=== PATIENT | female | born 1940 | race Caucasian/White ===

== ENCOUNTER 2016-04-30 16:01 | Outpatient (CLI) | payer MEDICARE, OTHER ==
[2016-01-29 08:45] VITALS: BP 165/84
== END 2016-04-30 16:02 ==
LOC: LABRHC 16:01
PROVIDERS: ATTEND Family Medicine
DX: R30.0 Dysuria (principal)
CPT/HCPCS: 87088

== ENCOUNTER 2016-05-12 17:06 | Outpatient (CLI) | payer MEDICARE, OTHER ==
[2016-01-29 08:45] VITALS: BP 165/84
[2016-05-12 17:29] LABS: BASOPHILS % 0.3 (0.0-1.5); EOSINOPHILS % 1.9 % (0.0-6.8); LYMPHOCYTES # 1.1 # k/uL (0.6-4.0); MEAN CORPUSCULAR HEMOGLOBIN 29.9 pg (28.0-34.0); MONOCYTES # 0.4 # k/uL (0.0-0.9); MONOCYTES % 8.7 % (0.0-11.0); NEUTROPHILS # 3.1 # k/uL (1.4-7.7)
[2016-05-12 17:58] LABS: eGFR (African) > 60; eGFR (Non-African) > 60
== END 2016-05-12 17:11 | disposition home or self-care (01) ==
LOC: LAB 17:06
PROVIDERS: ATTEND Family Medicine
DX: D64.9 Anemia, unspecified (principal); Z51.81 Encounter for therapeutic drug level monitoring
CPT/HCPCS: 36415; 80053; 82150; 85025

== ENCOUNTER 2016-05-14 08:50 | Outpatient (CLI) | payer MEDICARE, OTHER ==
[2016-01-29 08:45] VITALS: BP 165/84
--- NOTE | 2016-05-14 15:02 | Diagnostic Imaging Report ---
[facility] [address] [facility].[address] [address] Report Submission Date: May 14, 2016 12:33:03 PM HOD CARRIER Patient Study Name: ANEL TORREZ Date: May 14, 2016 11:43:13 AM HOD CARRIER Modality Type: CT\SR Gender: F Description: CT ABD & PELVIS W/ CON : 42 Institution: [facility] Physician: LIZ MOREAU CT of the abdomen and pelvis without contrast CLINICAL HISTORY: Nausea, vomiting and weight loss for 6 months. Abdominal pain. TECHNIQUE: CT abdomen and pelvis is performed following oral administration of contrast without the use of intravenous contrast. Sagittal and coronal reconstructions are performed by the technologist. FINDINGS: Visualized lung bases are clear. There are calcified pleural plaques in the right lung base. Liver and spleen demonstrate normal attenuation without focal defect. Small gallstones are seen within the gallbladder. There is no pancreatic or adrenal abnormality. The kidneys are of normal size, shape and position. Extensive vascular calcification is present in the abdominal aorta and its branches without evidence of aneurysm. There is no retroperitoneal mass or significant adenopathy. Postoperative changes are seen with lumbar fusion at L4-5. There is slight anterolisthesis of L4 on L5. Left total hip replacement with metal artifact obscures portions of the pelvis. Bladder is unremarkable. There is no free fluid in the pelvis or abdomen. Appendix is visualized and is within normal limits. IMPRESSION: Cholelithiasis. Vascular calcification. Postoperative changes. Calcified right pleural plaques. Electronically signed on May 14, 2016 12:33:03 PM HOD CARRIER by: Shantanu QUINN
== END 2016-05-14 08:52 ==
LOC: RAD 08:50
PROVIDERS: ATTEND Family Medicine
DX: K80.20 Calculus of gallbladder without cholecystitis without obstruction (principal)
CPT/HCPCS: 74176; A9698

== ENCOUNTER 2016-05-16 14:20 | Outpatient (CLI) | payer MEDICARE, OTHER ==
[2016-01-29 08:45] VITALS: BP 165/84
--- NOTE | 2016-05-16 15:41 | CONSULTATION REPORT ---
REFERRING PHYSICIAN: Dr. Hubert Pradhan CONSULTING PHYSICIAN: Jordan Lloyd MD Dear Dr. Pradhan: REASON FOR CONSULT: Thank you for referring Francisca Thayer for continued management of her rheumatoid arthritis. HISTORY OF PRESENT ILLNESS: This is a 75-year-old white woman who has had rheumatoid arthritis as long as she can remember. She has had it so long that she used to be treated with gold. More recently, she has been on methotrexate at upwards to 8 tablets weekly. She tells me she has done with that. She has no problems with her hands, wrists, or feet. No morning stiffness. No joint swelling. She is more plagued by the fact that she recently had a fall and fractured her left hip and that is healing. She also bruised up her left anterior chest and left elbow and that is healing. She is having some pain in her knee and it is worse with walking. There is some creaking with it and she is scheduled for a knee injection. The other source of her pain is her back. She has had extensive surgery and fusion for what appeared to be spinal stenosis and this was done by Dr. Elias. Further complicating things is abnormal liver functions. I was able to review her labs and the first abnormality was in September of 2015, AST of 43 and alkaline phosphatase of 131. In November, an AST of 61, ALT of 53, and alkaline phosphatase of 132. On January 08, AST was 55, ALT of 74, and alkaline phosphatase of 115. Normal LFTs on January 17, but again on May 12, 2016 , AST remains elevated at 66 and an alkaline phosphatase of 199. A report of a CT of the abdomen does show that the patient has cholelithiasis. PAST MEDICAL HISTORY: 1. Bout of C. difficile colitis. 2. Hip fracture. 3. Coronary artery disease. 4. Chronic low back pain. 5. Seropositive rheumatoid arthritis. 6. Chronic immunosuppression. 7. Lumbar spine surgery. 8. Coronary artery bypass surgery in 1986 and 1998. 9. Hypertension. 10. COPD. 11. Gastritis. 12. Depression. 13. Hypothyroidism. 14. Osteoarthritis. PRESENT MEDICATIONS: Present medications are reviewed and are in the chart and again, include methotrexate 8 tablets weekly with folic acid supplementation. ALLERGIES: Patient reports allergies to: 1. Sulfa drugs. 2. Atenolol. 3. Cyclobenzaprine. 4. Flu vaccine. 5. Lisinopril. 6. Pregabalin. REVIEW OF SYSTEMS: Positive for fatigue and weakness and dry eyes and a little bit of dry mouth and runny nose and mouth sores, swelling of the legs, chronic shortness of breath, nausea, constipation, nocturia, easy bruising, skin tightness, muscle spasms, night sweats, excessive worries, depression, and difficulty sleeping. Otherwise, her weight has been stable. No red painful eyes. No dark stools or bloody stools. No heartburn. No rashes, hives, photosensitivity, color change of the hands or feet in the cold, nodules or bumps. PHYSICAL EXAMINATION: General: On exam, the patient appears overall well. He has difficulty with walking. Vital Signs: Weight is 171. T: 97, R: 20, heart rate is 77, BP: 150/70. HEENT: Sclerae are anicteric. Conjunctivae are pink. No stomatitis or glossitis. LUNGS: Some crackles at the bases, otherwise, no wheezing. HEART: Regular rhythm. No rubs or murmurs. ABDOMEN: Soft. VASCULAR: No edema or cyanosis. She does have senile purpura of the upper extremities. PERIPHERAL JOINTS: DIPs, PIPs, MCPs, and wrists show no tenderness or synovitis. 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 Elbows, shoulders, AC/SC and TMJ joints are unremarkable. Left knee with no effusion. Right knee with no effusion. Left knee did have medial joint line tenderness. No crepitus. Ankles are slightly tender. IMPRESSION: 1. History of seropositive rheumatoid arthritis, appears in clinical remission. 2. Abnormal liver functions with cholelithiasis. I am stopping her methotrexate indefinitely. We will give her a drug holiday. She is to call me immediately if she has recurrence of any swelling, warmth, or morning stiffness. 3. Osteoarthritis of the knee. She will be seeing Dr. James for a knee injection. 4. Chronic intractable back pain, i.e. failed back as per Dr. James. PLAN: Today I will obtain a DEXA scan of her right hip and forearm. I will give her a call in about 4 weeks and decide whether she is a candidate for management of her osteoporosis. Thank you very much for the opportunity to take care of your patient. Best regards, cc: Dr. Hubert QUINN
== END 2016-05-16 14:22 ==
LOC: RHEU 14:20
PROVIDERS: ATTEND Internal Medicine
DX: M81.0 Age-related osteoporosis without current pathological fracture (principal)
CPT/HCPCS: 77080; 99203; 99204

== ENCOUNTER 2016-05-25 08:20 | Outpatient (CLI) | payer MEDICARE, OTHER ==
[2016-01-29 08:45] VITALS: BP 165/84
--- NOTE | 2016-05-25 10:51 | Diagnostic Imaging Report ---
[facility] [place] [facility] [address] [facility] [address] [place], [place]. [address] ~ ~ ~ ~ Report Submission Date: May 25, 2016 9:58:35 AM DEVELOPER SUPPORT ENGINEER Patient ~ Study Name: ANEL TORREZ ~ Date: May 25, 2016 8:48:59 AM DEVELOPER SUPPORT ENGINEER ~ Modality Type: MR Gender: F ~ Description: MRI LOW EXT JNT W/O CONTRAST : 42 ~ Institution: [facility] [place] [facility] Physician: DENISSE DOMINGUEZ ~ ~ ~ ~ HISTORY: 75-year-old female with left knee pain laterally for 6 months. COMPARISON: None available. TECHNIQUE: ~Multiplanar multisequence noncontrast MR images of the left knee were performed. ~ FINDINGS: ~The PCL, MCL, LCL, and popliteus tendon are intact. ~There is mild signal abnormality throughout the ACL. ~There is fluid signal within the quadriceps and patellar tendons at the patellar attachments. There are subtle tears of the inner margin of the anterior horn and body of the lateral meniscus. ~The medial meniscus is intact. ~There is 5 mm lateral patellar subluxation. ~There is full-thickness loss of articular cartilage of the patella , medially and laterally. ~There are mild subchondral cystic changes of the patella. ~There is moderate to advanced chondromalacia of the medial compartment. ~There is mild chondromalacia of the lateral compartment. ~No evidence of fracture or bone marrow edema throughout the left knee. ~There is a small joint effusion and small popliteal fossa cyst. IMPRESSION: 1. ~Low grade chronic partial tear of the ACL. ~The PCL and collateral ligaments are intact. 2. ~Tears of the inner margin of the body and anterior horn of the lateral meniscus. ~The medial meniscus is intact. ~ 3. ~Quadriceps and patellar tendonitis. 4. 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 5. ~Small joint effusion and popliteal fossa cyst. ~ Electronically signed on May 25, 2016 9:58:35 AM DEVELOPER SUPPORT ENGINEER by: Kimo QUINN
== END 2016-05-25 08:22 ==
LOC: RAD 08:20
PROVIDERS: ATTEND Anesthesiology Pain Medicine
DX: S83.512A Sprain of anterior cruciate ligament of left knee, initial encounter (principal); S83.282A Other tear of lateral meniscus, current injury, left knee, initial encounter; M76.52 Patellar tendinitis, left knee; M94.28 Chondromalacia, other site; M25.462 Effusion, left knee; M71.22 Synovial cyst of popliteal space [Baker], left knee
CPT/HCPCS: 73721

== ENCOUNTER 2016-06-03 17:22 | Emergency (ER) | payer MEDICARE, OTHER ==
--- NOTE | 2016-06-03 18:19 | ED Physician Documentation ---
General Adult - HISTORIAN Historian: patient - HPI Stated Complaint: shortness of breath with exertion Chief Complaint: Dyspnea Onset: other (intermittent for several months) Timing: better Modifying Factors: worse with ambulation Quality: Feels SOB Further Comments: yes (Patient had has problems with her gall baldder/ abd pain. Is looking into to see if they think it is the problems. Patient has been having some problems with SOB with exerction. SAO2 is always OK without oxygen. Does have some oxygen at home that she uses at times. When she lasy down to symptoms go away. Does not seem to have any blockage or narrowing that seems to be causing problems. No chest pain or pressure noted. Mild cough, none productive, no wheezing) - ROS CONST: no problems, weakness (genrealized). denies: fever, chills - PAST HX Past History: COPD, hypertension, other (anxiety) Other History: other (CAD, RA, ) Surgeries/Procedures: cardiac bypass, other (AAA, lumbar fusion, Carotid endarterectomy) Immunizations: UTD - SOCIAL HX Smoking History: non-smoker Alcohol Use: none Drug Use: none - FAMILY HX Family History: Yes (CAD) - VITAL SIGNS Vital Signs: Vital Signs Temp Pulse Resp BP Pulse Ox 97.9 F 99 H 28 H 120/84 100 06/03/16 17:33 06/03/16 17:33 06/03/16 17:33 06/03/16 17:33 06/03/16 17:33 - REVIEWED ASSESSMENTS Nursing Assessment Reviewed: Yes Vitals Reviewed: Yes <Hubert Pradhan - Last Filed: 06/03/16 19:05> - VITAL SIGNS Vital Signs: Vital Signs Temp Pulse Resp BP Pulse Ox 97.9 F 99 H 28 H 120/84 100 06/03/16 17:33 06/03/16 17:33 06/03/16 17:33 06/03/16 17:33 06/03/16 17:33 <SONU SMALLWOOD - Last Filed: 06/03/16 21:23> - PAST HX Allergies/Adverse Reactions: Allergies Allergy/AdvReac Type Severity Reaction Status Date / Time atenolol Allergy Verified 06/03/16 17:44 cyclobenzaprine Allergy Verified 06/03/16 17:44 [Cyclobenzaprine] influenza virus vaccine, Allergy Verified 06/03/16 17:44 specific [influenza virus vacc,specific] lisinopril Allergy Verified 06/03/16 17:44 pregabalin [From Lyrica] Allergy Verified 06/03/16 17:44 Sulfa (Sulfonamide Allergy Verified 06/03/16 17:44 Antibiotics) Home Medications: Ambulatory Orders Medication Instructions Recorded Alprazolam [Xanax] 0.5 mg PO D PRN 01/15/16 Aspirin EC [Ecotrin] 81 mg PO DAILY 01/15/16 Atorvastatin Calcium 20 mg PO D 01/15/16 Bisoprolol Fumarate [Zebeta] 5 mg PO D 01/15/16 Budesonide 1 mg IH BID 01/15/16 Donepezil HCl 10 mg PO D 01/15/16 Fexofenadine HCl [Jenna] 30 mg PO D 01/15/16 Fluticasone Propionate [Flonase] 1 spray NS D 01/15/16 Folic Acid [Folvite] 1 mg PO DAILY 01/15/16 Furosemide 20 mg PO D 01/15/16 Ipratropium/Albuterol Sulfate 3 ml NEB Q6 PRN 01/15/16 [Duoneb] Levothyroxine Sodium [Synthroid] 50 mcg PO 07 01/15/16 Methotrexate Sodium [Rheumatrex] 20 mg PO WEEK 01/15/16 Omeprazole 20 mg PO BID 01/15/16 Polyethylene Glycol 3350 [Miralax] 17 gm PO 1100 PRN 01/15/16 Potassium Chloride [Klor-Con M20] 20 meq PO DAILY 01/15/16 Venlafaxine HCl [Effexor Xr] 150 mg PO D 01/15/16 amLODIPine BESYLATE [Norvasc] 5 mg PO 0900 01/15/16 Acetaminophen [Tylenol] 650 mg PO Q6 PRN #100 01/29/16 Cholecalciferol [Vitamin D-3] 2,000 unit PO DAILY #30 tablet 01/29/16 Hydrocodone/Acetaminophen 1 each PO Q4 PRN #60 tablet 01/29/16 [Hydrocodon-Acetaminophen 5-325] Metoclopramide HCl 5 mg PO 17 PRN #30 01/29/16 Progress - Progress Progress: 18:48 EKG are OK, no acute ischemic changes noted post exercise. - EKG/XRAY/CT Comments: EKG post exercise PVCs, no ischemic changes <Pradhan,Hubert - Last Filed: 06/03/16 19:05> ED Results Lab/Radiology - Lab Results Lab Results: Lab Results 06/03/16 06/03/16 06/03/16 18:50 18:50 18:50 WBC 8.20 K/ul K/ul (4.00-12.00) RBC 4.28 M/ul M/ul (3.90-5.20) Hgb 13.1 g/dL g/dL (12.0-16.0) Hct 40.7 % % (34.5-46.5) MCV 95.2 fl fl (80.0-100.0) MCH 30.6 pg pg (28.0-34.0) MCHC 32.1 g/dL g/dL (30.0-36.0) RDW 16.3 % H % (11.3-14.3) Plt Count 264 K/mm3 K/mm3 (130-400) Neut % (Auto) 71.7 % % (39.0-79.0) Lymph % (Auto) 17.2 % % (16.0-50.0) Winkler % (Auto) 9.3 % % (0.0-11.0) Eos % (Auto) 0.9 % % (0.0-6.8) Baso % (Auto) 0.1 (0.0-1.5) Neut # 5.8 # k/uL # k/uL (1.4-7.7) Lymph # 1.4 # k/uL # k/uL (0.6-4.0) Winkler # 0.8 # k/uL # k/uL (0.0-0.9) Eos # 0.1 # k/uL # k/uL (0.0-0.6) Baso # 0.0 # k/uL # k/uL (0.0-0.5) Reactive Lymphs % 0.8 % % (0.0-5.0) Reactive Lymphs # 0.1 # k/uL # k/uL (0.0-0.8) D-Dimer 943 ng/mL H ng/mL (6.0-682) Sodium 140 mmol/L mmol/L (136-145) Potassium 3.3 mmol/L L mmol/L (3.5-5.0) Chloride 104 mmol/L mmol/L (98-110) Carbon Dioxide 26 mmol/L mmol/L (20-32) BUN 17 mg/dL mg/dL (10-26) Creatinine 0.6 mg/dL mg/dL (0.4-1.5) Estimated Creat Clear 124 Est GFR ( Amer) > 60 (60 - ) Est GFR (Non-Af Amer) > 60 (60 - ) Glucose 123 mg/dL H mg/dL (70-99) Calcium 8.8 mg/dL mg/dL (8.5-10.5) Total Bilirubin 0.5 mg/dL mg/dL (0.2-1.2) AST 118 U/L H U/L (0-41) ALT 94 U/L H U/L (0-45) Alkaline Phosphatase 167 U/L H U/L (46-116) Troponin I < 0.03 ng/mL L ng/mL (0.03-0.06) Total Protein 7.1 g/dL g/dL (6.0-8.5) Albumin 3.6 g/dL g/dL (3.0-5.5) - Radiology Radiology Impressions: CT chest with contrast CLINICAL HISTORY: SOB W/ ELEVATED DDIMER, PT HAS HAD BYPASS SX, AND CAROTID SX ( Hx) / SOB W/ ELEVATED D-DIMER (DICOM Hx) TECHNIQUE: 3 mm contiguous axial images of the chest with contrast. Sagittal and coronal reconstructions. FINDINGS: The lungs are clear. There is no evidence of pulmonary infiltrate, pleural effusion or pneumothorax. The cardiac and mediastinal vascular structures enhance appropriately. The aorta and pulmonary arteries are normal in caliber. There is no evidence of pulmonary artery filling defect to suggest pulmonary embolism. There is old granulomatous disease. There is mild centrilobular emphysema. Prior new sternotomy noted. Prior kyphoplasty noted. IMPRESSION: No evidence of acute pulmonary embolism. Electronically signed on Jun 03, 2016 8:25:41 PM PIERCING SPECIALIST by: Paul Pierre - Orders Orders: ED Orders Category Date Time Status Place Saline Lock/IV Now Care 06/03/16 18:[address] CHEST W/ CONTRAST Stat Exams 06/03/16 Taken CBC/PLATELET/DIFF Routine Lab 06/03/16 18:50 Completed CMP Routine Lab 06/03/16 18:50 Completed D DIMER Routine Lab 06/03/16 18:50 Completed TROPONIN I (cTnI) Routine Lab 06/03/16 18:50 Completed EKG WITH COMPARISON Routine Ther 06/03/16 Ordered <SONU SMALLWOOD - Last Filed: 06/03/16 21:23> General Adult Physical Exam - PHYSICAL EXAM GENERAL APPEARANCE: mild distress (anxious) NECK: normal inspection, thyroid normal, supple. No: lymphadenopathy, stiff neck RESPIRATORY: no resp distress, chest non-tender. No: wheezes, rales, rhonchi CVS: reg rate & rhythm, heart sounds normal, equal pulses, no murmur, no gallop ABDOMEN: soft, no organomegaly, normal bowel sounds, no abdominal bruit, no distension, non-tender. No: rebound, guarding BACK: no CVA tenderness SKIN: warm/dry NEURO: oriented X3, cognition normal, depressed mood/affect. No: mood/affect nml <Hubert Pradhan - Last Filed: 06/03/16 19:05> Discharge <Hubert Pradhan - Last Filed: 06/03/16 19:05> Decision to Admit: NO Decision Time: 21:23 <SONU SMALLWOOD - Last Filed: 06/03/16 21:23> Clincal Impression: Dyspnea Qualifiers: Dyspnea type: dyspnea on exertion Qualified Code(s): R06.09 - Other forms of dyspnea Referrals: Hubert Pradhan MD [Primary Care Provider] - 2 Days Additional Instructions: Follow up with PCP in a week You may benefit from pulmonary testing as an outpatient if your symptoms continue Home Medications: Ambulatory Orders Alprazolam [Xanax] 0.5 mg PO D PRN 01/15/16 Aspirin EC [Ecotrin] 81 mg PO DAILY 01/15/16 Atorvastatin Calcium 20 mg PO D 01/15/16 Bisoprolol Fumarate [Zebeta] 5 mg PO D 01/15/16 Budesonide 1 mg IH BID 01/15/16 Donepezil HCl 10 mg PO D 01/15/16 Fexofenadine HCl [Jenna] 30 mg PO D 01/15/16 Fluticasone Propionate [Flonase] 1 spray NS D 01/15/16 Folic Acid [Folvite] 1 mg PO DAILY 01/15/16 Furosemide 20 mg PO D 01/15/16 Ipratropium/Albuterol Sulfate [Duoneb] 3 ml NEB Q6 PRN 01/15/16 Levothyroxine Sodium [Synthroid] 50 mcg PO 07 01/15/16 Methotrexate Sodium [Rheumatrex] 20 mg PO WEEK 01/15/16 Omeprazole 20 mg PO BID 01/15/16 Polyethylene Glycol 3350 [Miralax] 17 gm PO 1100 PRN 01/15/16 Potassium Chloride [Klor-Con M20] 20 meq PO DAILY 01/15/16 Venlafaxine HCl [Effexor Xr] 150 mg PO D 01/15/16 amLODIPine BESYLATE [Norvasc] 5 mg PO 0900 01/15/16 Acetaminophen [Tylenol] 650 mg PO Q6 PRN #100 01/29/16 Cholecalciferol [Vitamin D-3] 2,000 unit PO DAILY #30 tablet 01/29/16 Hydrocodone/Acetaminophen [Hydrocodon-Acetaminophen 5-325] 1 each PO Q4 PRN #60 tablet 01/29/16 Metoclopramide HCl 5 mg PO 17 PRN #30 01/29/16 Condition: Good Disposition: 01 HOME, SELF-CARE
[2016-06-03 19:01] LABS: BASOPHILS % 0.1 (0.0-1.5); EOSINOPHILS % 0.9 % (0.0-6.8); LYMPHOCYTES # 1.4 # k/uL (0.6-4.0); MEAN CORPUSCULAR HEMOGLOBIN 30.6 pg (28.0-34.0); MONOCYTES # 0.8 # k/uL (0.0-0.9); MONOCYTES % 9.3 % (0.0-11.0); NEUTROPHILS # 5.8 # k/uL (1.4-7.7)
[2016-06-03 19:15] LABS: eGFR (African) > 60; eGFR (Non-African) > 60
[2016-06-03 22:01] VITALS: BP 118/59
--- NOTE | 2016-06-04 06:43 | Diagnostic Imaging Report ---
Report Submission Date: Jun 03, 2016 8:25:41 PM BRICK MASON Patient ~ Study Name: ANEL TORREZ ~ Date: Jun 03, 2016 7:58:34 PM BRICK MASON ~ Modality Type: CT\SR Gender: F ~ Description: CT CHEST W/ CONTRAST : 42 ~ Institution: [facility] Physician: YESSICA ORELLANA ~ ~ ~ ~ CT chest with contrast CLINICAL HISTORY:~ SOB W/ ELEVATED DDIMER, PT HAS HAD BYPASS SX, AND CAROTID SX (Hx) / SOB W/ ELEVATED D-DIMER (DICOM Hx) TECHNIQUE: 3 mm contiguous axial images of the chest with contrast. Sagittal and coronal reconstructions.~ FINDINGS: The lungs are clear. There is no evidence of pulmonary infiltrate, pleural effusion or pneumothorax. The cardiac and mediastinal vascular structures enhance appropriately. The aorta and pulmonary arteries are normal in caliber. There is no evidence of pulmonary artery filling defect to suggest pulmonary embolism. There is old granulomatous disease. There is mild centrilobular emphysema. Prior new sternotomy noted. Prior kyphoplasty noted. IMPRESSION: No evidence of acute pulmonary embolism. ~ Electronically signed on Jun 03, 2016 8:25:41 PM BRICK MASON by: Palu QUINN
== END 2016-06-03 21:30 | disposition home or self-care (01) ==
LOC: ED 17:22
DX: R06.09 Other forms of dyspnea (principal)
CPT/HCPCS: 71260; 80053; 84484; 85025; 85379; Q9966; 99284; S1016

== ENCOUNTER 2016-07-30 15:46 | Outpatient (CLI) | payer MEDICARE, OTHER ==
--- NOTE | 2016-07-31 16:19 | OP Clinic Progress Note ---
REFERRING PHYSICIAN: Dr. Hubert Pradhan REASON FOR VISIT: This 75-year-old lady is seen with a history consistent with chronic rhinosinusitis for at least about a year and some degrees prior to that. She had taken a variety of medications and changes over the last year including 2 hip surgeries and, I believe, a cholecystectomy. Patient has headaches particularly above and behind the right eye and supraorbital region and also in the low frontal or upper ethmoid areas fairly symmetrically and bilaterally. She has a stuffy nose and congestion. She is bothered by the very sticky thick mucus that accumulates in her throat. The patient is allergic to sulfa. She has taken a nice course of ciprofloxacin which is a good medication but did not find improvement with it. She has diffuse rhinitis. With a zero-degree rhinoscope, I do not see any polyps in either nostril but there is severe diffuse edema and thickening bilaterally. There is posterior pharyngitis and extremely thick secretions in the oropharynx. She has not had a long enough trial on taking medications to warrant thinking about sinus surgery. She is not particularly symptomatically allergic, although she probably does have some degree of allergies. Overall, she appears to be more infectious. PLAN: I elected to try another family of antibiotics. I picked Augmentin 500 mg 1 three times a day for 10 days. I will see her back in about 2 weeks. Additionally, I have asked her to use a saline nasal spray and suck it all the way back through her nostrils down into her throat and then spit that out. It may help to clear the oropharynx in addition. cc: Dr. Hubert QUINN
== END 2016-07-30 15:47 ==
LOC: ENT 15:46
PROVIDERS: ATTEND Otolaryngology
DX: J32.9 Chronic sinusitis, unspecified (principal); J31.0 Chronic rhinitis
CPT/HCPCS: G0463

== ENCOUNTER 2016-08-08 14:38 | Outpatient (CLI) | payer MEDICARE, OTHER | END 2016-08-08 14:40 | LOC: LAB 14:38 | PROVIDERS: ATTEND Family Medicine | DX: A09 Infectious gastroenteritis and colitis, unspecified (principal) | CPT/HCPCS: 87493 ==

== ENCOUNTER 2016-08-13 13:43 | Outpatient (CLI) | payer MEDICARE, OTHER ==
[2016-08-13 15:30] LABS: eGFR (African) > 60; eGFR (Non-African) > 60
--- NOTE | 2016-08-16 08:31 | OP Clinic Progress Note ---
REFERRING PHYSICIAN: Dr. Hubert Pradhan REASON FOR VISIT: Francisca is seen initially regarding problems with rhinosinusitis. She was taking Augmentin and had issues with diarrhea. After the fact, she mentioned that she had problems with C. difficile in the distant past. I have actually asked her to stop the antibiotics. She has gotten a C. difficile test that was negative. Nevertheless, patient described even yesterday having chills, tiredness, fatigue, and persistent diarrhea despite taking [id number] antidiarrheal medications. PLAN: Although the patient has had a negative C. difficile test, with her persistent symptoms, I have asked her to have that repeated and she does have a stool specimen cup to do that. Additionally, on the outside chance she might benefit from IV electrolyte replacement, I asked her to get a chemistry profile on a precautionary basis and check in with Dr. Pradhan tomorrow. Although there is no clear evidence with a negative culture for C. difficile that she has it, but the patient is still symptomatic. Again, I am going to double check the stool for C. difficile; and for the possibility of her needing IV rehydration, a chemistry profile will be drawn today. Patient wanted more antibiotics for her sinus symptoms and I told her that would be a long way in the future. She can return on a p.r.n. basis when the diarrheal issues have subsided. There is some possibility that she has a coincidental infection, as she has had nausea and vomiting associated with it in addition. cc: Dr. Hubert QUINN
== END 2016-08-13 13:44 ==
LOC: ENT 13:43
PROVIDERS: ATTEND Otolaryngology
DX: J32.9 Chronic sinusitis, unspecified (principal); R19.7 Diarrhea, unspecified
CPT/HCPCS: 36415; 80053; G0463

== ENCOUNTER 2016-08-18 11:33 | Outpatient (CLI) | payer MEDICARE, OTHER ==
[2016-08-19 08:21] LABS: ADENOVIRUS F 40/41 Not Detected (Not Detected); ASTROVIRUS Not Detected (Not Detected); C. DIFFICILE (TOXIN A/B) Positive (Not Detected); CRYPTOSPORIDIUM Not Detected (Not Detected); CYCLOSPORA CAYETANENSIS Not Detected (Not Detected); ENTAMOEBA HISTOLYTICA Not Detected (Not Detected); GIARDIA LAMBLIA Not Detected (Not Detected); ROTAVIRUS A Not Detected (Not Detected); SAPOVIRUS Not Detected (Not Detected); VIBRIO CHOLERAE Not Detected (Not Detected)
== END 2016-08-18 11:34 ==
LOC: LAB 11:33
PROVIDERS: ATTEND Family Medicine
DX: A09 Infectious gastroenteritis and colitis, unspecified (principal)
CPT/HCPCS: 87507

== ENCOUNTER 2016-09-11 13:17 | Outpatient (CLI) | payer MEDICARE, OTHER | END 2016-09-11 13:18 | LOC: LABRHC 13:17 | PROVIDERS: ATTEND Family Medicine | DX: N30.01 Acute cystitis with hematuria (principal) | CPT/HCPCS: 87086 ==

== ENCOUNTER 2016-09-24 14:08 | Outpatient (CLI) | payer MEDICARE, OTHER ==
--- NOTE | 2016-09-25 10:18 | OP Clinic Progress Note ---
REASON FOR VISIT: This 76-year-old lady is seen for ongoing complaints of rhinosinusitis. She has taken some antibiotics and in the more distant past, she had C. difficile and again, more recently, she has had it associated with some diarrhea. The patient's main complaint are constantly blowing her nose but not getting anything out. She acknowledges some headaches but they do not really seem to be debilitating. Some are more central over the ethmoid sinuses, but the other headaches that bother her are more in her temples that potentially could be more of a tension-type of headache and not really associated with the potential of rhinosinusitis. She is rather vague regarding other severe symptoms. She may feel that she gets a low-grade fever late in the afternoons. She has used Flonase and [place] nasal spray. She may have some degree of immunocompromise with a history of rheumatoid. She had been taking methotrexate for this but stopped perhaps 5 months ago. They said possibly 1 of her liver function tests, I believe, had enzymes that had been elevated. The nose itself does not have any gross purulence in it. The septum is serpentine but not severe obstructed. There is some rhinitis but, at least today, it is of a fairly mild degree. PLAN: I think, given choices and options for Francisca, revisiting with an washcoat wiper would probably be the best choice. By history, she saw an washcoat wiper many years ago and she states that she was told that she was just full of allergies. At this point, I would not tend to offer surgery to the patient. I would encourage her to revisit with an washcoat wiper. I am happy to have her check with Dr. Pradhan if he has a recommendation for an washcoat wiper in [place] or I would be happy to facilitate making an appointment for her. She can return anytime on a p.r.n. basis. cc: Dr. Hubert QUINN
== END 2016-09-24 14:10 ==
LOC: ENT 14:08
PROVIDERS: ATTEND Otolaryngology
DX: J32.8 Other chronic sinusitis (principal)
CPT/HCPCS: G0463

== ENCOUNTER 2016-09-30 11:24 | Outpatient (CLI) | payer MEDICARE, OTHER ==
--- NOTE | 2016-09-30 14:53 | Diagnostic Imaging Report ---
YESSICA ORELLANA [facility] [address] [facility] [address] [address] Report Submission Date: Sep 30, 2016 12:22:56 PM CDT Patient Study Name: ANEL TORREZ Date: Sep 30, 2016 11:29:49 AM CDT Modality Type: CR Gender: F Description: PELVIS : 44 Institution: [facility] Physician: YESSICA ORELLANA Examination: Plain film hip History: Hip replacement. Continued discomfort Comparison exam: None provided Findings: 2 views of the left hip demonstrates a prosthetic device in place. Good positioning. No evidence for dislocation. Margins of the acetabulum and proximal femur without cortical destruction or periosteal reaction. Superior and inferior pubic rami and visualized margins of the iliac wing are without gross irregularity. Impression: Hip prosthesis in place. No evidence for fracture or loosening by plain film sensitivity. If still suspect mild prosthesis loosening - can be further assessed with nuclear medicine bone scan if clinically warranted. Electronically signed on Sep 30, 2016 12:22:56 PM CDT by: Kirt QUINN
== END 2016-09-30 11:25 ==
LOC: RAD 11:24
PROVIDERS: ATTEND Family Medicine
DX: M25.552 Pain in left hip (principal)

== ENCOUNTER 2016-12-08 09:57 | Outpatient (CLI) | payer MEDICARE, OTHER ==
[~2016-12-08 09:57] MED LIST: BUPIVACAINE HCL/PF 2.5 MG/ML 10ML VIAL IV ONE; TRIAMCINOLONE ACETONID 40MG/ML VIAL ONE
--- NOTE | 2016-12-08 15:10 | SACROILIAC JOINT BLOCK FLUORO ---
SUBJECTIVE: Ms. Thayer comes in today and she has done very well following facet medial branch blocks done in August. She has had L4-L5 lumbar decompression with instrumentation in the past and I placed bilateral facet medial branch blocks and her axial back pain resolved. She is now complaining of pain over the sacroiliac joints bilaterally without radiation. There is no evidence of radiculitis. Plan today for bilateral sacroiliac joint injections under fluoroscopic guidance. PROCEDURE: Bilateral sacroiliac joint steroid injection with fluoroscopic guidance. DESCRIPTION OF PROCEDURE: The risks and benefits were discussed with the patient, including the risks of infection, bleeding, and nerve injury. Furthermore, I discussed the risk of recurring steroid exposure causing hyperglycemia, hypertensin, osteoporosis or increased infectious risks. The patient understood these risks and agreed to proceed. Consent was obtained. The patient was placed in the prone position on the fluoroscopy table and the low back was cleaned and sterile drapes were applied. An oblique fluoroscopic view was obtained of the left sacroiliac joint. A 23-gauge Quincke-tip spinal needle was advanced under direct fluoroscopic guidance until the needle tip was located within the dorsal aspect of the sacroiliac joint. Omnipaque 240 myelogram dye was injected and noted to course within and around the dorsal aspect of the joint and medially in the region of the dorsal sacral nerve roots supplying the joint. The medications were injected into and along the sacroiliac joint (divided among two injection sites and walking the needle along the joint). The stylette was reinserted into the needle prior to each removal of the needle from the back. The exact same procedure was repeated on the contralateral sacroiliac joint. The back was cleaned and a bandage was applied over the injection sites. The patient was monitored for 20 minutes following the procedure, during which time the patient experienced no adverse sequelae. The patient was discharged home in good condition with a pile driver operator helper driving the patient home. ASSESSMENT: 1. Sacroiliac joint arthropathy. 2. Sacroiliitis. PLAN: Bilateral sacroiliac joint injections with fluoroscopic guidance. FOLLOWUP: Return to clinic if problems develop or worsen. cc: Dr. Hubert QUINN
== END 2016-12-08 13:02 ==
LOC: OUT 09:57
PROVIDERS: ATTEND Anesthesiology Pain Medicine
DX: M46.1 Sacroiliitis, not elsewhere classified (principal); M47.898 Other spondylosis, sacral and sacrococcygeal region
CPT/HCPCS: J3301; J3490; Q9966; 27096; 99213; G0463; G0260

== ENCOUNTER 2016-12-16 14:08 | Outpatient (CLI) | payer MEDICARE, OTHER | END 2016-12-16 14:10 | LOC: RT 14:08 | PROVIDERS: ATTEND Physician Assistant | DX: I49.9 Cardiac arrhythmia, unspecified (principal) ==

== ENCOUNTER 2017-01-01 16:10 | Outpatient (CLI) | payer MEDICARE, OTHER | END 2017-01-01 16:11 | LOC: LABRHC 16:10 | PROVIDERS: ATTEND Physician Assistant | DX: R30.0 Dysuria (principal) | CPT/HCPCS: 87086 ==

== ENCOUNTER 2017-01-05 10:50 | Outpatient (CLI) | payer MEDICARE, OTHER ==
[~2017-01-05 10:50] MED LIST changes: +BUPIVACAINE HCL/EPINEPHRINE/PF 0.25% VIAL IM ONE; -BUPIVACAINE HCL/PF 2.5 MG/ML 10ML VIAL IV ONE; +Lidocaine 1% 5ml(IM or SUTURE)(PAIN CLINIC) ONE
--- NOTE | 2017-02-17 15:56 | LUMBAR FACET MBB ---
SUBJECTIVE: Low back pain. PREOPERATIVE DIAGNOSES: 1. Failed laminectomy pain syndrome. 2. Lumbar facet spondylosis. OPERATIVE PROCEDURE: Bilateral L4, L5, and sacral ala facet medial nerve branch blocks with fluoroscopic guidance. DESCRIPTION OF PROCEDURE: Consent was obtained after risks were fully explained including bleeding, infection, nerve damage, or worsening of symptoms. The patient was positioned prone on the fluoroscopic procedure table and a sterile prep and drape were applied. Under AP, oblique, and lateral fluoroscopic imaging, the L4 vertebral body and left L4 superior articular process was identified. A 25-gauge spinal needle was advanced to the left L4 superior articular process under direct fluoroscopic imaging. With the needle in place, there was negative aspiration of blood or CSF and following this, the medication was injected. The stylet was replaced in the needle and the needle was subsequently removed from the back. In this exact same fashion, the right L4, bilateral L5, and bilateral sacral ala facet medial branch blocks were performed for a total of 6 medial branch blocks. On completion of the procedure, the back was cleaned and a bandage was applied over the injection sites. The patient tolerated the procedure well and there were no apparent complications. The patient was monitored for 20 minutes following the procedure during which time the patient experienced no adverse sequelae. The patient was discharged to home in good condition with a diary to follow up for possible radiofrequency neurolysis. ASSESSMENT: 1. Failed laminectomy pain syndrome. 2. Lumbar facet spondylosis. PLAN: Bilateral L4, L5, and sacral ala facet medial nerve branch blocks with fluoroscopic guidance. FOLLOWUP: Return to clinic if problems develop or worsen. cc: Dr. Hubert QUINN
== END 2017-01-05 10:51 ==
LOC: OUT 10:50
PROVIDERS: ATTEND Anesthesiology Pain Medicine
DX: M70.62 Trochanteric bursitis, left hip (principal); M70.61 Trochanteric bursitis, right hip
CPT/HCPCS: 20611; 99213; G0463; J3301

== ENCOUNTER 2017-02-16 13:13 | Outpatient (CLI) | payer MEDICARE, OTHER ==
--- NOTE | 2017-02-17 16:08 | PAIN CLINIC PROGRESS NOTES ---
REASON FOR VISIT: Ms. Thayer comes in today and she got no immediate improvement following lumbar facet medial branch blocks. This is a 76-year-old white female with a history of previous lumbar surgery, fusion, failed laminectomy pain syndrome, back and bilateral pain who has failed conservative therapy, failed interventional therapy, and has intractable back and lower extremity pain. At this point, I discussed the trial of a neurostimulator and that she would be a good candidate for a trial of a neurostimulator and I discussed burst stimulation and high frequency stimulation. At this point, we are going obtain a P3 psychologic inventory with a plan for a trial of neuromodulation in the near future. She is in agreement today. ASSESSMENT: 1. Intractable back and lower extremity pain. 2. Failed laminectomy pain syndrome. PLAN: We will get the P3 study and schedule her for a stimulator trial. cc: Dr. Hubert QUINN
== END 2017-02-16 13:14 ==
LOC: OUT 13:13
PROVIDERS: ATTEND Anesthesiology Pain Medicine
DX: M54.89 Other dorsalgia (principal); M96.1 Postlaminectomy syndrome, not elsewhere classified
CPT/HCPCS: 99213; G0463

== ENCOUNTER 2017-03-31 15:33 | Outpatient (CLI) | payer MEDICARE, OTHER | END 2017-03-31 15:34 | LOC: LABRHC 15:33 | PROVIDERS: ATTEND Physician Assistant | DX: N39.0 Urinary tract infection, site not specified (principal) | CPT/HCPCS: 87086 ==

== ENCOUNTER 2017-04-07 10:22 | Outpatient (CLI) | payer MEDICARE, OTHER | END 2017-04-07 12:56 | LOC: LABRHC 10:22 | PROVIDERS: ATTEND Family Medicine | DX: N39.0 Urinary tract infection, site not specified (principal) | CPT/HCPCS: 87086 ==

== ENCOUNTER 2017-06-15 14:38 | Outpatient (CLI) | payer MEDICARE, OTHER | END 2017-06-15 14:40 | LOC: LABRHC 14:38 | PROVIDERS: ATTEND Physician Assistant | DX: R30.0 Dysuria (principal) | CPT/HCPCS: 87086 ==

== ENCOUNTER 2017-07-08 11:56 | Outpatient (CLI) | payer MEDICARE, OTHER ==
[2017-07-08 12:26] LABS: BASOPHILS % 0.6 (0.0-1.5); EOSINOPHILS % 1.6 % (0.0-6.8); MEAN CORPUSCULAR VOLUME 95.6 fl (80.0-100.0); MONOCYTES % 12.9 % (0.0-11.0); NEUTROPHILS # 2.6 # k/uL (1.4-7.7)
[2017-07-08 13:19] LABS: eGFR (African) > 60; eGFR (Non-African) > 60
== END 2017-07-08 12:00 ==
LOC: LAB 11:56
PROVIDERS: ATTEND Family Medicine
DX: G62.9 Polyneuropathy, unspecified (principal); R63.5 Abnormal weight gain; I10 Essential (primary) hypertension
CPT/HCPCS: 36415; 80053; 82607; 82746; 84443; 85025

== ENCOUNTER 2017-09-29 10:25 | Outpatient (CLI) | payer MEDICARE, OTHER ==
[2017-09-29 10:37] LABS: BASOPHILS % 0.3 (0.0-1.5); EOSINOPHILS % 2.3 % (0.0-6.8); MEAN CORPUSCULAR HEMOGLOBIN 30.7 pg (28.0-34.0); MEAN CORPUSCULAR VOLUME 99.9 fl (80.0-100.0); MONOCYTES % 7.5 % (0.0-11.0); NEUTROPHILS # 1.7 # k/uL (1.4-7.7)
[2017-09-29 11:00] LABS: eGFR (African) > 60; eGFR (Non-African) > 60
== END 2017-09-29 10:26 ==
LOC: LAB 10:25
PROVIDERS: ATTEND Family Medicine
DX: E78.00 Pure hypercholesterolemia, unspecified (principal); I10 Essential (primary) hypertension; I25.10 Atherosclerotic heart disease of native coronary artery without angina pectoris; E03.9 Hypothyroidism, unspecified
CPT/HCPCS: 36415; 80053; 80061; 84439; 84443; 85025

== ENCOUNTER 2017-10-15 09:39 | Outpatient (CLI) | payer MEDICARE, OTHER ==
[2017-10-15 10:24] LABS: eGFR (African) > 60; eGFR (Non-African) > 60
== END 2017-10-15 09:45 ==
LOC: LAB 09:39
PROVIDERS: ATTEND Internal Medicine Cardiovascular Disease
DX: R73.09 Other abnormal glucose (principal); I25.10 Atherosclerotic heart disease of native coronary artery without angina pectoris
CPT/HCPCS: 36415; 80048; 83036

== ENCOUNTER 2017-12-08 13:55 | Outpatient (CLI) | payer MEDICARE, OTHER | END 2017-12-08 14:00 | LOC: LABRHC 13:55 | PROVIDERS: ATTEND Physician Assistant | DX: R30.0 Dysuria (principal) | CPT/HCPCS: 87086 ==

== ENCOUNTER 2018-01-20 16:47 | Outpatient (CLI) | payer MEDICARE, OTHER | END 2018-01-20 16:50 | LOC: LABRHC 16:47 | PROVIDERS: ATTEND Family Medicine | DX: R35.0 Frequency of micturition (principal) | CPT/HCPCS: 87086 ==

== ENCOUNTER 2018-02-01 15:45 | Inpatient (IN) | payer MEDICARE, OTHER ==
[2018-02-01] MEDS ORDERED: IPRATROPIUM/ALBUTEROL SULFATE 3 ML AMPUL.NEB NEB ONE ×2 (16:01→16:46)
[2018-02-01] MEDS ORDERED: cefTRIAXone SODIUM 1 GM in 0.9 % SODIUM CHLORIDE 50 ML IV ONE (16:11)
[2018-02-01] MEDS ORDERED: AZITHROMYCIN 250 MG TABLET PO ONE (16:11)
--- NOTE | 2018-02-01 16:19 | ED Physician Documentation ---
General Adult - HISTORIAN Historian: patient, other (Dr. Pradhan's visit records) - HPI Stated Complaint: possible pneumonia Chief Complaint: General Adult Additional Information: Completed a 10 day course of Levaquin 500 mg/day yesterday, for COPD exacerbation/bronchitis. She continues to have fevers, 99.5 day before yesterday, has cough productive of clear to green mucus, KRAUS. No night sweats. No change in appetite. Typically uses 2.5L/NC to sleep, but has been using her oxygen more. Using nebs at home. Sat in office was 86-86% on RA and was 84-85% on arrival in ER. No CP. No other modifying factors or associated events. - ROS CONST: fever CVS/RESP: shortness of breath, cough - PAST HX Past History: AMI Surgeries/Procedures: cardiac bypass, other (lumbar surgery) Allergies/Adverse Reactions: Allergies Allergy/AdvReac Type Severity Reaction Status Date / Time atenolol Allergy Verified 02/01/18 16:01 cyclobenzaprine Allergy Verified 02/01/18 16:01 [Cyclobenzaprine] influenza virus vaccine, Allergy Verified 02/01/18 16:01 specific [influenza virus vacc,specific] lisinopril Allergy Verified 02/01/18 16:01 pregabalin [From Lyrica] Allergy Verified 02/01/18 16:01 Sulfa (Sulfonamide Allergy Verified 02/01/18 16:01 Antibiotics) Home Medications: Ambulatory Orders Medication Instructions Recorded Alprazolam [Xanax] 1 mg PO D PRN 01/15/16 Aspirin EC [Ecotrin] 81 mg PO DAILY 01/15/16 Atorvastatin Calcium 20 mg PO D 01/15/16 Ipratropium/Albuterol Sulfate 3 ml NEB Q6 PRN 01/15/16 [Duoneb] Levothyroxine Sodium [Synthroid] 50 mcg PO 07 01/15/16 Polyethylene Glycol 3350 [Miralax] 17 gm PO 1100 PRN 01/15/16 Potassium Chloride [Klor-Con M20] 20 meq PO DAILY 01/15/16 Venlafaxine HCl [Effexor Xr] 150 mg PO D 01/15/16 amLODIPine BESYLATE [Norvasc] 10 mg PO 0900 01/15/16 Amitriptyline HCl 50 mg PO HS 10/08/18 Ciclopirox 1 appl TP DAILY 10/08/18 Primidone [Mysoline] 50 mg PO BID 02/01/18 - SOCIAL HX Smoking History: quit greater than 1 year - FAMILY HX Family History: No - VITAL SIGNS Vital Signs: Vital Signs Temp Pulse Resp BP Pulse Ox 118/59 06/03/16 21:58 - REVIEWED ASSESSMENTS Nursing Assessment Reviewed: Yes Vitals Reviewed: Yes Progress - Progress Progress: 1700, clear after second Duoneb. Notes that for 3 weeks, she has been having muscle spasms/twitches intermittently over her entire body. ED Results Lab/Radiology - Orders Orders: ED Orders Category Date Time Status Place IV Lock 1T Care 02/01/18 15:58 Ordered CHEST 2VIEW [RAD] Stat Exams 02/01/18 Ordered BLOOD CULTURE Stat Lab 02/01/18 Ordered CBC REF Routine Lab 02/01/18 15:50 Received CMP Routine Lab 02/01/18 Ordered TROPONIN T (Susy) Stat Lab 02/01/18 15:50 Received URINALYSIS Routine Lab 02/01/18 Ordered Azithromycin [Zithromax] Med 02/01/18 16:11 Once 500 mg PO NOW ONE Ipratropium/Albuterol Sulfate [Duoneb] Med 02/01/18 16:01 Once 3 ml NEB NOW ONE cefTRIAXone SODIUM [Rocephin] 1 gm Med 02/01/18 16:11 Ordered 0.9 % Sodium Chloride [Sodium Chloride] 50 ml IV NOW General Adult Physical Exam - PHYSICAL EXAM GENERAL APPEARANCE: moderate distress (appears tired. On 4L/NC. Pulse ox 95%+ with conversation.) EENT: eye inspection normal, ENT inspection normal, pharynx normal NECK: normal inspection, supple (non tender) RESPIRATORY: wheezes (fine, throughout), rales CVS: reg rate & rhythm, heart sounds normal, no murmur ABDOMEN: soft, normal bowel sounds, non-tender BACK: normal inspection, no CVA tenderness, other (well healed lumbar surgical scar. no vertebral tenderness) SKIN: warm/dry, normal color EXTREMITIES: no evidence of injury, no edema NEURO: CN's nml as tested, motor nml, sensation nml, cognition normal Discharge Clincal Impression: Dyspnea Qualifiers: Dyspnea type: unspecified Qualified Code(s): R06.00 - Dyspnea, unspecified Referrals: Hubert Pradhan MD [Primary Care Provider] - 2 Days Condition: Fair Disposition: ADMITTED INPATIENT Decision to Admit: [id number] Decision Time: 17:00
[2018-02-01] MEDS ORDERED: IPRATROPIUM/ALBUTEROL SULFATE 3 ML AMPUL.NEB NEB PRN ×2 (16:24→17:12)
[2018-02-01] MEDS ORDERED: ALPRAZOLAM 0.5 MG TABLET PO PRN ×2 (16:24→17:12)
[2018-02-01] MEDS ORDERED: ZOLPIDEM TARTRATE 5 MG TABLET PO PRN ×2 (16:24→17:12)
[2018-02-01] MEDS ORDERED: methylPREDNISolone SOD SUCC 40 MG/ML VIAL ONE (16:44)
[2018-02-01] MEDS ORDERED: cefTRIAXone SODIUM 1 GM VIAL ONE (16:44)
[2018-02-01 16:50] LABS: eGFR (Non-African) > 60
[2018-02-01] MEDS: methylPREDNISolone SOD SUCC 40 MG/ML VIAL IVP SCH (16:54)
[2018-02-01] MEDS ORDERED: ALBUTEROL 90MCG/PUFF INHALER IH SCH (17:00)
[2018-02-01 18:02] LABS: TROPONIN T <0.010 ng/mL (<0.010)
--- NOTE | 2018-02-01 18:04 | Diagnostic Imaging Report ---
CLEM BELTRÁN [facility] [address] [facility] [address] Report Submission Date: Feb 01, 2018 5:24:57 PM CDT Patient Study Name: ANEL TORREZ Date: Feb 01, 2018 4:56:45 PM CDT Modality Type: DX Gender: F Description: CHEST : 44 Institution: [facility] Physician: CLEM BELTRÁN PA and lateral chest Clinical history: Persistent cough. Difficulty breathing. Findings: Examination of the chest in PA and lateral views with no prior films for comparison demonstrates cardiomegaly and aortic atherosclerosis. There are multiple sternotomy wires and surgical clips consistent with previous bypass grafting. Bilateral pleural effusions blunt the costophrenic angles. Prior vertebroplasty has been performed in the midthoracic region. Lungs are free of coalescent infiltrate. Impression: 1. Postoperative chest. 2. Bilateral pleural effusions. 3. Cardiomegaly and aortic atherosclerosis. Electronically signed on Feb 01, 2018 5:24:57 PM CDT by: Shantanu QUINN
[2018-02-01 18:32] LABS: BASO % 0.5 % (0.0-1.5); EOS % 2.9 % (0.0-6.8); LYMPH ABS # 1.88 thou/uL (0.60-4.00); MCH. 32.3 pg (28.0-34.0); MCV 100.1 fL (80.0-100.0); MONOCYTE % 12.7 % (0.0-11.0); PLATELET COUNT 133 thou/uL (130-400)
[2018-02-01] MEDS: GUAIFENESIN/CODEINE 10 ML S/F LIQUID DOSE CUP PO PRN (20:21)
[2018-02-01] MEDS: ZOLPIDEM TARTRATE 5 MG TABLET PO PRN (20:21)
[2018-02-01] MEDS: ACETAMINOPHEN 325 MG TABLET PO PRN (20:22)
[2018-02-01] MEDS: AMITRIPTYLINE HCL 25 MG TABLET PO SCH (20:22)
[2018-02-01] MEDS: DONEPEZIL HCL 5 MG TABLET PO SCH (20:22)
[2018-02-01] MEDS: ATORVASTATIN CALCIUM 80 MG TABLET PO SCH (20:22)
[2018-02-01] MEDS: PRIMIDONE 50 MG TABLET PO SCH (20:24)
[2018-02-01 20:39] VITALS: BMI 34.3
[2018-02-01] MEDS ORDERED: DONEPEZIL HCL 10 MG PO SCH ×2 (21:00)
[2018-02-01] MEDS ORDERED: PRIMIDONE 50 MG TABLET PO SCH (21:00)
[2018-02-01] MEDS ORDERED: AMITRIPTYLINE HCL 50 MG PO SCH ×2 (21:00)
[2018-02-01] MEDS ORDERED: Non-Formulary 1 EACH (Omeprazole [Omeprazole] 20 MG) PO SCH ×2 (21:00)
[2018-02-01] MEDS ORDERED: ALBUTEROL SULFATE 2.5 MG/3 ML AMPUL.NEB NEB SCH ×2 (21:00)
[2018-02-01] MEDS: IPRATROPIUM/ALBUTEROL SULFATE 3 ML AMPUL.NEB NEB SCH (21:05)
[2018-02-01] MEDS ORDERED: PANTOPRAZOLE SODIUM 40 MG TABLET ONE (22:47)
[2018-02-01] MEDS ORDERED: LOSARTAN POTASSIUM 50 MG TABLET PO ONE (22:48)
[2018-02-01] MEDS ORDERED: LEVOTHYROXINE SODIUM 25 MCG TABLET ONE (22:48)
[2018-02-01] MEDS ORDERED: ASPIRIN EC 81 MG TABLET.DR ONE (22:49)
[2018-02-01] MEDS ORDERED: POTASSIUM CHLORIDE 20 MEQ TABLET.ER ONE (22:49)
[2018-02-01] MEDS ORDERED: amLODIPine BESYLATE 5 MG TABLET ONE (22:50)
[2018-02-01] MEDS ORDERED: FUROSEMIDE 20 MG TABLET PO ONE (22:50)
[2018-02-01] MEDS ORDERED: MONTELUKAST SODIUM 10 MG TABLET PO ONE (22:50)
[2018-02-02] MEDS: ACETAMINOPHEN 325 MG TABLET PO PRN ×3 (01:15→21:06)
[2018-02-02] MEDS: IPRATROPIUM/ALBUTEROL SULFATE 3 ML AMPUL.NEB NEB SCH ×6 (01:35→21:30)
[2018-02-02] MEDS: PANTOPRAZOLE SODIUM 40 MG TABLET PO SCH (06:06)
[2018-02-02] MEDS: LEVOTHYROXINE SODIUM 25 MCG TABLET PO SCH (06:06)
[2018-02-02] MEDS ORDERED: LEVOTHYROXINE SODIUM 50 MCG PO SCH ×2 (07:00)
--- NOTE | 2018-02-02 07:13 | History and Physical Report ---
History of Present Illnes - History of Present Illness Reason for Visit: dyspnea History of Present Illness: 77-year-old white female who presented to the clinic approximately 10 days prior to admission deplaning up some increasing shortness of breath and a productive cough up some yellow green phlegm. Patient was felt to have a bronchitis was started on Levaquin 500 mg PO Q day. Patient has been used to course of antibiotic several days ago stated initially she did have some improvement n othing seem to be getting worse again. Patient has happened to use her nebulizer on a more frequent basis along with her inhaler. Patient denies any fever or chills at this time. Patient felt that she may be having an exacerbation of her COPD. Patient was subsequently admitted to the hospital to acute care. - Past Medical History Cardiac: CAD, HTN, Hyperlipidemia, Other (left carotid artery disease). denies: CHF Pulmonary: COPD Gastrointestinal: Peptic ulcer disease Psych: Anxiety, Depression Rheumatologic: Rheumatoid arthritis - Past Surgical History Past Surgical History: CABG (x2), Other (cardiac stenting, lumbar fusion, carotid endarterectomy, AAA rescection) - Past Social History Smoke: # pack years (45 pack year history), No, Quit Occupation: retired Alcohol: None Drugs: None Lives: With Family () - Health Maintenance Health Maintenance: Mammogram, Colonoscopy. denies: Influenza Vaccine Influenza Vaccine: No Pneumonia Vaccine: Yes Resuscitation Status: Resusciation Status Resuscitation Status Full Code - Unable to Obtain History Unable to Obtain: No Review of Systems - Review of Systems Constitutional: Weakness. negative: Fever, Chills Eyes: negative: pain, vision change ENT: negative: Ear Pain, Ear Discharge, Nose Pain, Nose Discharge, Nose Congestion, Mouth Pain, Mouth Swelling, Throat Pain, Throat Swelling Respiratory: Cough, Shortness of Breath, SOB with Excertion, Sputum (green). negative: Dry, Hemoptysis, Pleuritic Pain, Wheezing Cardiovascular: negative: Chest Pain, Palpitations, Orthopnea, Edema, Light Headedness Gastrointestinal: Constipation. negative: Nausea, Vomiting, Abdominal Pain, Diarrhea, Melena, Hematochezia Genitourinary: negative: Dysuria, Frequency, Incontinence, Hematuria Musculoskeletal: Neck Pain, Foot Pain Skin: negative: Rash, Lesions Neurological: negative: Weakness, Numbness - Medications/Allergies Allergies/Adverse Reactions: Allergies Allergy/AdvReac Type Severity Reaction Status Date / Time atenolol Allergy Verified 02/01/18 16:01 cyclobenzaprine Allergy Verified 02/01/18 16:01 [Cyclobenzaprine] influenza virus vaccine, Allergy Verified 02/01/18 16:01 specific [influenza virus vacc,specific] lisinopril Allergy Verified 02/01/18 16:01 pregabalin [From Lyrica] Allergy Verified 02/01/18 16:01 Sulfa (Sulfonamide Allergy Verified 02/01/18 16:01 Antibiotics) Home Medications: Home Medications Amitriptyline HCl 50 mg PO HS 02/01/18 Ciclopirox 1 appl TP DAILY 02/01/18 Primidone [Mysoline] 50 mg PO BID 02/01/18 Current Inpatient Medications: Current Inpatient Medications Acetaminophen (Tylenol) 650 mg PO Q4H PRN PRN Reason: PAIN Last Admin: 02/02/18 01:15 Dose: 650 mg Albuterol/Ipratropium (Duoneb) 3 ml NEB Q4 [facility] Last Admin: 02/02/18 05:40 Dose: 3 ml Alprazolam (Xanax) 1 mg PO D PRN PRN Reason: Anxiety Amitriptyline HCl (Elavil) 150 mg PO HS [facility] Last Admin: 02/01/18 20:22 Dose: 150 mg Amlodipine Besylate (Norvasc) 10 mg PO 0900 [facility] Aspirin (Ecotrin) 81 mg PO DAILY [facility] Atorvastatin Calcium (Lipitor) 40 mg PO HS [facility] Last Admin: 02/01/18 20:22 Dose: 40 mg Azithromycin (Zithromax) 250 mg PO DAILY [facility] Donepezil HCl (Aricept) 10 mg PO BID [facility] Last Admin: 02/01/18 20:22 Dose: 10 mg Fluticasone Propionate (Flonase Nasal [place]) 1 spray NS DAILY [facility] Furosemide (Lasix) 20 mg PO DAILY [facility] Ceftriaxone Sodium 1 gm/ (Sodium Chloride) 100 mls @ 100 mls/hr IV Q24H [facility] Levothyroxine Sodium (Synthroid) 50 mcg PO 0700 [facility] Last Admin: 02/02/18 06:06 Dose: 50 mcg Losartan Potassium (Cozaar) 100 mg PO DAILY [facility] Methylprednisolone Sodium Succinate (Solu-Medrol) 80 mg IVP Q12 [facility] Last Admin: 02/01/18 16:54 Dose: 80 mg Miscellaneous (Ciclopirox [Ciclopirox]) 1 appl TP DAILY [facility] Miscellaneous (Venlafaxine Hcl [Effexor Xr]) 150 mg PO D YENNIFER Miscellaneous (Patient Own Med) 1 each PO D [facility] Montelukast Sodium (Singulair) 10 mg PO DAILY [facility] Pantoprazole Sodium (Protonix) 40 mg PO 0700 YENNIFER Last Admin: 02/02/18 06:06 Dose: 40 mg Polyethylene Glycol (Miralax) 17 gm PO 1100 PRN PRN Reason: Constipation Potassium Chloride (Klor-Con M20) 20 meq PO DAILY [facility] Primidone (Mysoline) 50 mg PO BID YENNIFER Last Admin: 02/01/18 20:24 Dose: Not Given Zolpidem Tartrate (Ambien) 5 mg PO HS PRN PRN Reason: Insomnia Last Admin: 02/01/18 20:21 Dose: 5 mg Exam - Exam Vital Signs: Vital Signs (72 hours) 02/01/18 02/01/18 02/01/18 15:46 17:04 17:20 Temperature 98.1 F 98.7 F 97.8 F Pulse Rate [ 64 74 72 Pulse ox] Respiratory 28 H 24 22 Rate Blood Pressure 129/55 [Left Arm] Blood Pressure 130/52 120/69 [Right Arm] O2 Sat by Pulse 84 L 98 99 Oximetry 02/01/18 02/02/18 02/02/18 21:20 01:00 05:00 Temperature 98.8 F 98.0 F 97.7 F Pulse Rate [ 74 77 78 Pulse ox] Respiratory 20 20 18 Rate Blood Pressure [Left Arm] Blood Pressure 142/62 132/67 108/47 [Right Arm] O2 Sat by Pulse 96 92 96 Oximetry General: Alert, Oriented to Person, Oriented to Place, Oriented to Time, Cooperative HEENT: Atraumatic, PERRLA Neck: Normal Range of Motion. No: Stridor, Lymphadenopathy Carotids: WNL Thyroid: WNL Lungs: Speaks full Sentences, Respiratory Distress (mild), Wheezes, Rhonchi (scattered bilat), Decreased Air Movement (in left base) Cardiovascular: Regular rate, Normal S1, Normal S2, No murmurs. No: Gallops, Mu rmur Peripheral Edema: 1+ bilaterally Peripheral Pulses: intact Abdomen: Normal bowel sounds, Soft, No tenderness, No hepatospenomegaly Integumentary: Normal, [place], Warm, Dry Extremities: No clubbing, No cyanosis Neurological: Normal gait, Normal speech, Strength Equal Bilat, Normal tone, Sensation intact, Cranial nerves 3-12 NL Psych/Mental Status: Mental status NL, Appropriate Affect, Intact Judgment. No: Mood NL (depressed) - Laboratory Results Laboratory Results: Laboratory Results 02/01/18 02/01/18 02/01/18 15:50 15:50 15:50 WBC Comment 5.50 RBC 3.50 L Hemoglobin (Send Out) 11.3 L Hct (Send Out) 35.0 MCV (Send Out) 100.1 H MCH 32.3 MCHC (Send Out) 32.3 RDW Coeff of Matues 16.1 H Plt Count 133 Absolute Lymphs (auto) 1.88 Absolute Monos (auto) 0.70 Absolute Basos (auto) 0.03 Neutrophils % 49.8 Absolute Neutrophils 2.74 Lymphocytes 34.1 Monocytes 12.7 H Absolute Eosinophils 0.16 Basophilia % 0.5 Eosinophil Count 2.9 Sodium 136 Potassium 3.6 Chloride 101 Carbon Dioxide 30 BUN 9 Creatinine 0.60 Estimated Creat Clear 119 Est GFR ( Amer) > 60 Est GFR (Non-Af Amer) > 60 Glucose 92 Calcium 7.4 L Total Bilirubin 0.6 AST 65 H ALT 40 Alkaline Phosphatase 185 H Troponin T <0.010 Total Protein 7.3 Albumin 3.0 L Assessment/Plan - Assessment/Plan (1) COPD exacerbation Status: Acute Current Visit: Yes Assessment: Will start HFN treatment q 4 hours, Sill start IV steroids. (2) CAD (coronary artery disease) Status: Chronic Current Visit: No Qualifiers: Coronary Disease-Associated Artery/Lesion type: bypass graft [place] vs. transplanted heart: [place] heart Associated angina: with stable angina Qualified Code(s): I25.708 - Atherosclerosis of coronary artery bypass graft(s), unspecified, with other forms of angina pectoris Assessment: continue with home meds (3) Rheumatoid arthritis Status: Chronic Current Visit: No Qualifiers: Rheumatoid arthritis location: multiple sites Rheumatoid factor presence: without rheumatoid factor Qualified Code(s): M06.09 - Rheumatoid arthritis without rheumatoid factor, multiple sites Assessment: continue with home meds (4) Hypothyroidism Status: Acute Current Visit: Yes Assessment: continue home medication (5) Chronic depression Status: Acute Current Visit: Yes Assessment: stable on home medications VTE Assessment - RISK FACTOR SCORE VTE RISK FACTOR SCORES: AGE OVER 60 YEARS, ACUTE RESPIRATORY FAILURE/SEVERE COPD - RISK VTE MODERATE RISK: SCORE OF 2 (RISK PROXIMAL DVT 2-4%) PROPHYAXIS NEEDED
[2018-02-02] MEDS ORDERED: methylPREDNISolone SOD SUCC 40 MG/ML VIAL ONE ×2 (07:20→20:23)
[2018-02-02] MEDS ORDERED: VENLAFAXINE HCL 150 MG PO SCH ×2 (09:00)
[2018-02-02] MEDS ORDERED: amLODIPine BESYLATE 5 MG TABLET PO SCH (09:00)
[2018-02-02] MEDS ORDERED: Non-Formulary 1 EACH (Atorvastatin Calcium [Atorvastatin Calcium] 20 MG) PO SCH ×2 (09:00)
[2018-02-02] MEDS ORDERED: CICLOPIROX APPL TP SCH (09:00)
[2018-02-02] MEDS ORDERED: ASPIRIN EC 81 MG TABLET.DR PO SCH (09:00)
[2018-02-02] MEDS ORDERED: Non-Formulary 1 EACH (Duloxetine Hcl [Duloxetine Hcl] 60 MG) PO SCH ×2 (09:00)
[2018-02-02] MEDS ORDERED: POTASSIUM CHLORIDE 20 MEQ TABLET.ER PO SCH (09:00)
[2018-02-02] MEDS ORDERED: BISOPROLOL FUMARATE 5 MG PO SCH ×2 (09:00)
[2018-02-02] MEDS ORDERED: MONTELUKAST SODIUM 10 MG TABLET PO SCH (09:00)
[2018-02-02] MEDS ORDERED: LOSARTAN POTASSIUM 50 MG TABLET PO SCH (09:00)
[2018-02-02] MEDS ORDERED: AZITHROMYCIN 250 MG TABLET PO SCH (09:00)
[2018-02-02] MEDS ORDERED: FUROSEMIDE 20 MG TABLET PO SCH (09:00)
--- NOTE | 2018-02-02 09:03 | Inpatient Progress Note ---
Subjective - Required Recertification Statement I anticipate X number of days because-include discharge plan: 2 days - Review of Systems Events since last encounter: Patient states she is doing some better today. Patient states he still has some dyspnea with exertion. Patient continues to have a call with is clearing Objective - Exam Vitals and I&O: Vital Signs Temp 97.7 F 02/02/18 05:00 Pulse 78 02/02/18 05:00 Resp 18 02/02/18 05:00 BP 108/47 02/02/18 05:00 Pulse Ox 96 02/02/18 05:00 Intake & Output 02/01/18 02/01/18 02/02/18 11:59 23:59 11:59 Intake Total 405 120 Balance 405 120 Weight 87.997 kg Intake: IV 5 Right Forearm 5 Oral 400 120 Other: Voiding Method Toilet Toilet # Voids 2 General: Alert, Oriented to Person HEENT: Atraumatic, PERRLA, EOMI, Mouth Mucous membr. moist/[place], Nose Mucous membr. moist/[place] Neck: Supple, No JVD, No thyromegaly Lungs: Normal air movement, Speaks full Sentences, Wheezes, Rhonchi Cardiovascular: Regular rate, Normal S1, Normal S2, No murmurs Abdomen: Normal bowel sounds, Soft, No tenderness, No hepatospenomegaly, No masses Extremities: No clubbing, No cyanosis, No edema, Normal pulses, No tenderness/swelling Skin: Normal, [place], Warm, Dry Neurological: Normal gait, Normal speech, Strength Equal Bilat, Normal tone, Sensation intact, Cranial nerves 3-12 NL, Reflexes 2+ Psych/Mental Status: Mental status NL, Mood NL, Appropriate Affect, Intact Judgment - Results Results: Laboratory Results WBC Comment 5.50 thou/uL (4.00-12.00) 02/01/18 15:50 RBC 3.50 mil/uL (3.90-5.20) L 02/01/18 15:50 Hemoglobin (Send Out) 11.3 g/dL (11.5-16.0) L 02/01/18 15:50 Hct (Send Out) 35.0 % (34.5-46.5) 02/01/18 15:50 MCV (Send Out) 100.1 fL (80.0-100.0) H 02/01/18 15:50 MCH 32.3 pg (28.0-34.0) 02/01/18 15:50 MCHC (Send Out) 32.3 g/dL (30.0-36.0) 02/01/18 15:50 RDW Coeff of Mateus 16.1 % (11.3-14.7) H 02/01/18 15:50 Plt Count 133 thou/uL (130-400) 02/01/18 15:50 Absolute Lymphs (auto) 1.88 thou/uL (0.60-4.00) 02/01/18 15:50 Absolute Monos (auto) 0.70 thou/uL (0.00-0.90) 02/01/18 15:50 Absolute Basos (auto) 0.03 thou/uL (0.00-0.50) 02/01/18 15:50 Neutrophils % 49.8 % (39.0-79.0) 02/01/18 15:50 Absolute Neutrophils 2.74 thou/uL (1.50-7.70) 02/01/18 15:50 Lymphocytes 34.1 % (16.0-50.0) 02/01/18 15:50 Monocytes 12.7 % (0.0-11.0) H 02/01/18 15:50 Absolute Eosinophils 0.16 thou/uL (0.00-0.60) 02/01/18 15:50 Basophilia % 0.5 % (0.0-1.5) 02/01/18 15:50 Eosinophil Count 2.9 % (0.0-6.8) 02/01/18 15:50 Sodium 136 mmol/L (136-145) 02/01/18 15:50 Potassium 3.6 mmol/L (3.5-5.1) 02/01/18 15:50 Chloride 101 mmol/L (98-107) 02/01/18 15:50 Carbon Dioxide 30 mmol/L (22-30) 02/01/18 15:50 BUN 9 mg/dL (7-17) 02/01/18 15:50 Creatinine 0.60 mg/dL (0.52-1.04) 02/01/18 15:50 Estimated Creat Clear 119 02/01/18 15:50 Est GFR ( Amer) > 60 (60-) 02/01/18 15:50 Est GFR (Non-Af Amer) > 60 (60-) 02/01/18 15:50 Glucose 92 mg/dL (74-106) 02/01/18 15:50 Calcium 7.4 mg/dL (8.4-10.2) L 02/01/18 15:50 Total Bilirubin 0.6 mg/dL (0.2-1.3) 02/01/18 15:50 AST 65 U/L (15-46) H 02/01/18 15:50 ALT 40 U/L (13-69) 02/01/18 15:50 Alkaline Phosphatase 185 U/L (38-126) H 02/01/18 15:50 Troponin T <0.010 ng/mL (<0.010) 02/01/18 15:50 Total Protein 7.3 g/dL (6.3-8.2) 02/01/18 15:50 Albumin 3.0 g/dL (3.5-5.0) L 02/01/18 15:50 Assessment/Plan - Assessment/Plan (1) COPD exacerbation Status: Acute Current Visit: Yes Assessment: Improved. Will go ahead and continue with present medications and treatment. (2) CAD (coronary artery disease) Status: Chronic Current Visit: No Qualifiers: Coronary Disease-Associated Artery/Lesion type: bypass graft [place] vs. transplanted heart: [place] heart Associated angina: with stable angina Qualified Code(s): I25.708 - Atherosclerosis of coronary artery bypass graft(s), unspecified, with other forms of angina pectoris Assessment: Stable on home medications. (3) Hypothyroidism Status: Acute Current Visit: Yes (4) Chronic depression Status: Acute Current Visit: Yes Assessment: Stable on home medications.
[2018-02-02] MEDS: DONEPEZIL HCL 5 MG TABLET PO SCH ×2 (09:05→21:03)
[2018-02-02] MEDS: ENOXAPARIN SODIUM 30 MG/0.3 ML DISP.SYRIN SQ SCH (09:06)
[2018-02-02] MEDS: LOSARTAN POTASSIUM 50 MG TABLET PO SCH (09:07)
[2018-02-02] MEDS: POTASSIUM CHLORIDE 20 MEQ TABLET.ER PO SCH (09:07)
[2018-02-02] MEDS: ASPIRIN EC 81 MG TABLET.DR PO SCH (09:07)
[2018-02-02] MEDS: amLODIPine BESYLATE 5 MG TABLET PO SCH (09:08)
[2018-02-02] MEDS: FUROSEMIDE 20 MG TABLET PO SCH (09:08)
[2018-02-02] MEDS: AZITHROMYCIN 250 MG TABLET PO SCH (09:09)
[2018-02-02] MEDS: MONTELUKAST SODIUM 10 MG TABLET PO SCH (09:09)
[2018-02-02] MEDS: FLUTICASONE PROPIONATE 120 SPRAY/16 GR BOTTLE NS SCH (09:10)
[2018-02-02] MEDS: methylPREDNISolone SOD SUCC 40 MG/ML VIAL IVP SCH ×2 (09:18→21:05)
[2018-02-02] MEDS ORDERED: POLYETHYLENE GLYCOL 3350 17 GM POWD.PACK PO PRN (11:00)
[2018-02-02] MEDS: CICLOPIROX APPL TP SCH (13:00)
[2018-02-02] MEDS: PRIMIDONE 50 MG TABLET PO SCH ×2 (13:01→21:04)
[2018-02-02] MEDS: PATIENT OWN MED 1 EACH EACH PO SCH (13:01)
[2018-02-02] MEDS: POLYETHYLENE GLYCOL 3350 17 GM POWD.PACK PO PRN (13:51)
[2018-02-02] MEDS: GUAIFENESIN/CODEINE 10 ML S/F LIQUID DOSE CUP PO PRN ×2 (13:58→21:06)
[2018-02-02] MEDS: VENLAFAXINE HCL 37.5 MG CAP.ER.24H PO SCH (15:07)
[2018-02-02] MEDS ORDERED: cefTRIAXone SODIUM 1 GM in 0.9 % SODIUM CHLORIDE 50 ML IV SCH (17:00)
[2018-02-02] MEDS ORDERED: cefTRIAXone SODIUM 1 GM in 0.9 % SODIUM CHLORIDE 100 ML IV SCH ×2 (17:00→18:00)
[2018-02-02] MEDS: ATORVASTATIN CALCIUM 80 MG TABLET PO SCH (21:03)
[2018-02-02] MEDS: AMITRIPTYLINE HCL 25 MG TABLET PO SCH (21:03)
[2018-02-02] MEDS: ZOLPIDEM TARTRATE 5 MG TABLET PO PRN (21:06)
[2018-02-03] MEDS: GUAIFENESIN/CODEINE 10 ML S/F LIQUID DOSE CUP PO PRN ×3 (02:16→15:22)
[2018-02-03] MEDS: ACETAMINOPHEN 325 MG TABLET PO PRN (02:16)
[2018-02-03] MEDS: IPRATROPIUM/ALBUTEROL SULFATE 3 ML AMPUL.NEB NEB SCH ×6 (02:16→21:48)
[2018-02-03] MEDS: LEVOTHYROXINE SODIUM 25 MCG TABLET PO SCH (06:08)
[2018-02-03] MEDS: PANTOPRAZOLE SODIUM 40 MG TABLET PO SCH (06:08)
[2018-02-03] MEDS: DONEPEZIL HCL 5 MG TABLET PO SCH ×2 (09:01→20:52)
[2018-02-03] MEDS: LOSARTAN POTASSIUM 50 MG TABLET PO SCH (09:01)
[2018-02-03] MEDS: ENOXAPARIN SODIUM 30 MG/0.3 ML DISP.SYRIN SQ SCH (09:01)
[2018-02-03] MEDS: amLODIPine BESYLATE 5 MG TABLET PO SCH (09:01)
[2018-02-03] MEDS: ASPIRIN EC 81 MG TABLET.DR PO SCH (09:01)
[2018-02-03] MEDS: FUROSEMIDE 20 MG TABLET PO SCH (09:02)
[2018-02-03] MEDS: POTASSIUM CHLORIDE 20 MEQ TABLET.ER PO SCH (09:02)
[2018-02-03] MEDS: VENLAFAXINE HCL 37.5 MG CAP.ER.24H PO SCH (09:02)
[2018-02-03] MEDS: MONTELUKAST SODIUM 10 MG TABLET PO SCH (09:03)
[2018-02-03] MEDS: CICLOPIROX APPL TP SCH (09:03)
[2018-02-03] MEDS: AZITHROMYCIN 250 MG TABLET PO SCH (09:04)
[2018-02-03] MEDS: PRIMIDONE 50 MG TABLET PO SCH ×2 (09:05→20:49)
[2018-02-03] MEDS: FLUTICASONE PROPIONATE 120 SPRAY/16 GR BOTTLE NS SCH (09:09)
[2018-02-03] MEDS: PATIENT OWN MED 1 EACH EACH PO SCH (09:10)
[2018-02-03] MEDS: POLYETHYLENE GLYCOL 3350 17 GM POWD.PACK PO PRN (09:28)
[2018-02-03] MEDS ORDERED: methylPREDNISolone SOD SUCC 40 MG/ML VIAL ONE (09:35)
[2018-02-03] MEDS: methylPREDNISolone SOD SUCC 40 MG/ML VIAL IVP SCH (09:50)
--- NOTE | 2018-02-03 10:08 | Inpatient Progress Note ---
Subjective - Required Recertification Statement I anticipate X number of days because-include discharge plan: 1 day - Review of Systems Events since last encounter: Patient continues to improve. Patient is down to 2 L of oxygen per nasal cannula. We did lose the patient IV access site. General: Denies: Chills Pulmonary: Dyspnea, Cough. Denies: Pleuritic Chest Pain Cardiovascular: Denies: Chest Pain, Palpitations Gastrointestinal: Denies: Nausea, Vomiting Objective - Exam Vitals and I&O: Vital Signs Temp 98.0 F 02/03/18 05:00 Pulse 82 02/03/18 05:00 Resp 18 02/03/18 05:00 BP 127/58 02/03/18 05:00 Pulse Ox 97 02/03/18 05:00 Intake & Output 02/02/18 02/02/18 02/03/18 11:59 23:59 11:59 Intake Total 460 1170 280 Balance 460 1170 280 Intake: IV 30 Right Forearm 30 Oral 460 1140 280 Other: Voiding Method Toilet Toilet Toilet # Voids 2 1 3 General: Alert, Oriented to Person, Oriented to Place, Oriented to Time, Cooperative HEENT: Atraumatic, PERRLA, EOMI, Mouth Mucous membr. moist/[place], Nose Mucous membr. moist/[place] Neck: Supple, No JVD, No thyromegaly Lungs: Normal air movement, Speaks full Sentences, Rhonchi (Few scattered bilaterally.). No: Wheezes Cardiovascular: Regular rate, Normal S1, Normal S2, No murmurs Extremities: No clubbing, No cyanosis Skin: Normal, [place], Warm, Dry Psych/Mental Status: Mental status NL, Mood NL, Appropriate Affect - Results Results: Laboratory Results WBC Comment 5.50 thou/uL (4.00-12.00) 02/01/18 15:50 RBC 3.50 mil/uL (3.90-5.20) L 02/01/18 15:50 Hemoglobin (Send Out) 11.3 g/dL (11.5-16.0) L 02/01/18 15:50 Hct (Send Out) 35.0 % (34.5-46.5) 02/01/18 15:50 MCV (Send Out) 100.1 fL (80.0-100.0) H 02/01/18 15:50 MCH 32.3 pg (28.0-34.0) 02/01/18 15:50 MCHC (Send Out) 32.3 g/dL (30.0-36.0) 02/01/18 15:50 RDW Coeff of Mateus 16.1 % (11.3-14.7) H 02/01/18 15:50 Plt Count 133 thou/uL (130-400) 02/01/18 15:50 Absolute Lymphs (auto) 1.88 thou/uL (0.60-4.00) 02/01/18 15:50 Absolute Monos (auto) 0.70 thou/uL (0.00-0.90) 02/01/18 15:50 Absolute Basos (auto) 0.03 thou/uL (0.00-0.50) 02/01/18 15:50 Neutrophils % 49.8 % (39.0-79.0) 02/01/18 15:50 Absolute Neutrophils 2.74 thou/uL (1.50-7.70) 02/01/18 15:50 Lymphocytes 34.1 % (16.0-50.0) 02/01/18 15:50 Monocytes 12.7 % (0.0-11.0) H 02/01/18 15:50 Absolute Eosinophils 0.16 thou/uL (0.00-0.60) 02/01/18 15:50 Basophilia % 0.5 % (0.0-1.5) 02/01/18 15:50 Eosinophil Count 2.9 % (0.0-6.8) 02/01/18 15:50 Sodium 136 mmol/L (136-145) 02/01/18 15:50 Potassium 3.6 mmol/L (3.5-5.1) 02/01/18 15:50 Chloride 101 mmol/L (98-107) 02/01/18 15:50 Carbon Dioxide 30 mmol/L (22-30) 02/01/18 15:50 BUN 9 mg/dL (7-17) 02/01/18 15:50 Creatinine 0.60 mg/dL (0.52-1.04) 02/01/18 15:50 Estimated Creat Clear 119 02/01/18 15:50 Est GFR ( Amer) > 60 (60-) 02/01/18 15:50 Est GFR (Non-Af Amer) > 60 (60-) 02/01/18 15:50 Glucose 92 mg/dL (74-106) 02/01/18 15:50 Calcium 7.4 mg/dL (8.4-10.2) L 02/01/18 15:50 Total Bilirubin 0.6 mg/dL (0.2-1.3) 02/01/18 15:50 AST 65 U/L (15-46) H 02/01/18 15:50 ALT 40 U/L (13-69) 02/01/18 15:50 Alkaline Phosphatase 185 U/L (38-126) H 02/01/18 15:50 Troponin T <0.010 ng/mL (<0.010) 02/01/18 15:50 Total Protein 7.3 g/dL (6.3-8.2) 02/01/18 15:50 Albumin 3.0 g/dL (3.5-5.0) L 02/01/18 15:50 Assessment/Plan - Assessment/Plan (1) COPD exacerbation Status: Acute Current Visit: Yes Assessment: I will go ahead and switch the patient over to oral steroids in oral antibiotic therapy. If patient does well on these will go ahead and dismiss home tomorrow. (2) CAD (coronary artery disease) Status: Chronic Current Visit: No Qualifiers: Coronary Disease-Associated Artery/Lesion type: bypass graft [place] vs. transplanted heart: [place] heart Associated angina: with stable angina Qualified Code(s): I25.708 - Atherosclerosis of coronary artery bypass graft(s), unspecified, with other forms of angina pectoris Assessment: Stable on home medications. (3) Rheumatoid arthritis Status: Chronic Current Visit: No Qualifiers: Rheumatoid arthritis location: multiple sites Rheumatoid factor presence: without rheumatoid factor Qualified Code(s): M06.09 - Rheumatoid arthritis without rheumatoid factor, multiple sites (4) Hypothyroidism Status: Acute Current Visit: Yes Assessment: Stable on home medications. (5) Chronic depression Status: Acute Current Visit: Yes Assessment: Stable on home medications.
[2018-02-03] MEDS: predniSONE 20 MG TABLET PO SCH (20:45)
[2018-02-03] MEDS: ATORVASTATIN CALCIUM 80 MG TABLET PO SCH (20:46)
[2018-02-03] MEDS: AMITRIPTYLINE HCL 25 MG TABLET PO SCH (20:46)
[2018-02-03] MEDS: ZOLPIDEM TARTRATE 5 MG TABLET PO PRN (20:53)
[2018-02-03] MEDS: CEFDINIR 300 MG CAPSULE PO SCH (20:58)
[2018-02-04] MEDS: IPRATROPIUM/ALBUTEROL SULFATE 3 ML AMPUL.NEB NEB SCH ×6 (01:50→21:40)
[2018-02-04] MEDS: LEVOTHYROXINE SODIUM 25 MCG TABLET PO SCH (06:08)
[2018-02-04] MEDS: PANTOPRAZOLE SODIUM 40 MG TABLET PO SCH (06:08)
[2018-02-04 07:44] LABS: eGFR (Non-African) > 60
[2018-02-04] MEDS: ASPIRIN EC 81 MG TABLET.DR PO SCH (08:03)
[2018-02-04] MEDS: CEFDINIR 300 MG CAPSULE PO SCH ×2 (08:03→20:25)
[2018-02-04] MEDS: FUROSEMIDE 20 MG TABLET PO SCH (08:04)
[2018-02-04] MEDS: LOSARTAN POTASSIUM 50 MG TABLET PO SCH (08:04)
[2018-02-04] MEDS: FLUTICASONE PROPIONATE 120 SPRAY/16 GR BOTTLE NS SCH (08:05)
[2018-02-04] MEDS: POTASSIUM CHLORIDE 20 MEQ TABLET.ER PO SCH (08:05)
[2018-02-04] MEDS: ENOXAPARIN SODIUM 30 MG/0.3 ML DISP.SYRIN SQ SCH (08:05)
[2018-02-04] MEDS: DONEPEZIL HCL 5 MG TABLET PO SCH ×2 (08:06→20:25)
[2018-02-04] MEDS: PRIMIDONE 50 MG TABLET PO SCH ×2 (08:07→20:27)
[2018-02-04] MEDS: PATIENT OWN MED 1 EACH EACH PO SCH (08:07)
[2018-02-04] MEDS: amLODIPine BESYLATE 5 MG TABLET PO SCH (08:09)
[2018-02-04] MEDS: VENLAFAXINE HCL 37.5 MG CAP.ER.24H PO SCH (08:10)
[2018-02-04] MEDS: MONTELUKAST SODIUM 10 MG TABLET PO SCH (08:10)
[2018-02-04] MEDS: predniSONE 20 MG TABLET PO SCH ×2 (08:12→20:26)
[2018-02-04] MEDS: AZITHROMYCIN 250 MG TABLET PO SCH (08:12)
[2018-02-04] MEDS: CICLOPIROX APPL TP SCH (08:12)
[2018-02-04] MEDS ORDERED: DOCUSATE SODIUM 100 MG/10 ML S/F LIQUID ONE (11:54)
[2018-02-04] MEDS: DOCUSATE SODIUM 100 MG CAPSULE PO SCH ×2 (11:57→20:26)
[2018-02-04] MEDS: NYSTATIN 500,000 UNIT/5 ML UDC PO SCH ×3 (11:58→20:24)
[2018-02-04] MEDS: ACETAMINOPHEN 325 MG TABLET PO PRN ×2 (12:55→20:26)
--- NOTE | 2018-02-04 13:00 | Diagnostic Imaging Report ---
[facility]MED SURG [facility] [address] [facility] [address] [address] Report Submission Date: Feb 04, 2018 12:05:54 PM CDT Patient Study Name: ANEL TORREZ Date: Feb 04, 2018 10:55:27 AM CDT Modality Type: CT\SR Gender: F Description: CT CHEST W/ CONTRAST : 44 Institution: [facility] Physician: [facility]/MED SURG Examination: CT chest pulmonary embolism History: CT CHEST WITH CONTRAST, PE PROTOCOL, SOA AND INCREASING BACK PAIN. WORSENING IN THE LAST WEEK. PT STATES PNEUMONIA (Hx) Comparison exam: Plain film dated 01 February 2018 Technique: CT chest pulmonic pulmonary embolism protocol. Findings: Bilateral pleural effusions with adjacent compressive atelectasis. Emphysematous changes with bulla formation. Mild interstitial prominence. No evidence for luminal filling defect within the main pulmonary arteries to the 3rd order branch vessels bilaterally. Peripheral mixing artifact. Thoracic aorta without aneurysmal dilation. No evidence for dissection flap. Peripheral atherosclerotic disease. No mediastinal or ramin mass or pathologic adenopathy. Cardiac silhouette not enlarged. No pericardial effusion. Vascular and valve calcifications. Osseous structures demonstrate mild degenerative changes. Lower neck structures, axilla regions, and upper abdominal organs are without gross irregularity. Impression: No evidence for pulmonary embolism by CT criteria. No evidence for thoracic aortic dissection or abnormality. Bilateral pleural effusions with adjacent compressive atelectasis. Emphysematous changes. Generalized interstitial prominence suggesting increased volume status/congestive edema. Electronically signed on Feb 04, 2018 12:05:54 PM CDT by: Kirt QUINN
[2018-02-04] MEDS ORDERED: FUROSEMIDE 20 MG/2 ML VIAL ONE (14:03)
[2018-02-04] MEDS: FUROSEMIDE 40 MG/4 ML VIAL IVP SCH (14:16)
[2018-02-04 16:41] LABS: BASO % 0.1 % (0.0-1.5); EOS % 0.5 % (0.0-6.8); LYMPH ABS # 1.29 thou/uL (0.60-4.00); MCH. 32.1 pg (28.0-34.0); MCV 102.2 fL (80.0-100.0); MONOCYTE % 8.8 % (0.0-11.0); PLATELET COUNT 164 thou/uL (130-400)
[2018-02-04] MEDS: GUAIFENESIN/CODEINE 10 ML S/F LIQUID DOSE CUP PO PRN (20:25)
[2018-02-04] MEDS: AMITRIPTYLINE HCL 25 MG TABLET PO SCH (20:26)
[2018-02-04] MEDS: ATORVASTATIN CALCIUM 80 MG TABLET PO SCH (20:27)
[2018-02-04] MEDS: ZOLPIDEM TARTRATE 5 MG TABLET PO PRN (20:28)
[2018-02-05] MEDS: IPRATROPIUM/ALBUTEROL SULFATE 3 ML AMPUL.NEB NEB SCH ×3 (01:54→09:45)
[2018-02-05] MEDS: FUROSEMIDE 40 MG/4 ML VIAL IVP SCH (06:07)
[2018-02-05] MEDS: LEVOTHYROXINE SODIUM 25 MCG TABLET PO SCH (06:07)
[2018-02-05] MEDS: PANTOPRAZOLE SODIUM 40 MG TABLET PO SCH (06:07)
[2018-02-05] MEDS: ENOXAPARIN SODIUM 30 MG/0.3 ML DISP.SYRIN SQ SCH (08:03)
[2018-02-05] MEDS: DONEPEZIL HCL 5 MG TABLET PO SCH (08:03)
[2018-02-05] MEDS: CEFDINIR 300 MG CAPSULE PO SCH (08:04)
[2018-02-05] MEDS: CICLOPIROX APPL TP SCH (08:04)
[2018-02-05] MEDS: LOSARTAN POTASSIUM 50 MG TABLET PO SCH (08:05)
[2018-02-05] MEDS: DOCUSATE SODIUM 100 MG CAPSULE PO SCH (08:05)
[2018-02-05] MEDS: VENLAFAXINE HCL 37.5 MG CAP.ER.24H PO SCH (08:06)
[2018-02-05] MEDS: predniSONE 20 MG TABLET PO SCH (08:06)
[2018-02-05] MEDS: ASPIRIN EC 81 MG TABLET.DR PO SCH (08:06)
[2018-02-05] MEDS: FLUTICASONE PROPIONATE 120 SPRAY/16 GR BOTTLE NS SCH (08:08)
[2018-02-05] MEDS: POTASSIUM CHLORIDE 20 MEQ TABLET.ER PO SCH (08:08)
[2018-02-05] MEDS: NYSTATIN 500,000 UNIT/5 ML UDC PO SCH (08:09)
[2018-02-05] MEDS: amLODIPine BESYLATE 5 MG TABLET PO SCH (08:10)
[2018-02-05] MEDS: MONTELUKAST SODIUM 10 MG TABLET PO SCH (08:11)
[2018-02-05] MEDS: AZITHROMYCIN 250 MG TABLET PO SCH (08:11)
[2018-02-05] MEDS: PATIENT OWN MED 1 EACH EACH PO SCH (08:11)
--- NOTE | 2018-02-05 08:47 | Inpatient Progress Note ---
Subjective - Required Recertification Statement I anticipate X number of days because-include discharge plan: 1 day - Review of Systems Events since last encounter: Patient pulmonary status appeared to be coming along well at this time. Patient is moving air better than what she had previously. There's very few weaving noted with fourth expiration. Patient however stated she did not sleep well last night and feels weak and tremulous related to that. Patient depression has been stable. Patient denies any chest pain or chest pressure. Objective - Exam Vitals and I&O: Vital Signs Temp 97.8 F 02/05/18 05:00 Pulse 80 02/05/18 05:00 Resp 20 02/05/18 05:00 BP 160/82 02/05/18 05:00 Pulse Ox 92 02/05/18 05:00 Intake & Output 02/04/18 02/04/18 02/05/18 11:59 23:59 11:59 Intake Total 840 1730 120 Balance 840 1730 120 Weight 87.997 kg Intake: Oral 840 1730 120 Other: Voiding Method Toilet Toilet # Voids 3 2 2 - Results Results: Laboratory Results WBC Comment 7.95 thou/uL (4.00-12.00) 02/04/18 06:40 RBC 3.40 mil/uL (3.90-5.20) L 02/04/18 06:40 Hemoglobin (Send Out) 10.9 g/dL (11.5-16.0) L 02/04/18 06:40 Hct (Send Out) 34.7 % (34.5-46.5) 02/04/18 06:40 MCV (Send Out) 102.2 fL (80.0-100.0) H 02/04/18 06:40 MCH 32.1 pg (28.0-34.0) 02/04/18 06:40 MCHC (Send Out) 31.4 g/dL (30.0-36.0) 02/04/18 06:40 RDW Coeff of Mateus 16.2 % (11.3-14.7) H 02/04/18 06:40 Plt Count 164 thou/uL (130-400) 02/04/18 06:40 Absolute Lymphs (auto) 1.29 thou/uL (0.60-4.00) 02/04/18 06:40 Absolute Monos (auto) 0.70 thou/uL (0.00-0.90) 02/04/18 06:40 Absolute Basos (auto) 0.01 thou/uL (0.00-0.50) 02/04/18 06:40 Neutrophils % 74.5 % (39.0-79.0) 02/04/18 06:40 Absolute Neutrophils 5.92 thou/uL (1.50-7.70) 02/04/18 06:40 Lymphocytes 16.2 % (16.0-50.0) 02/04/18 06:40 Monocytes 8.8 % (0.0-11.0) 02/04/18 06:40 Absolute Eosinophils 0.04 thou/uL (0.00-0.60) 02/04/18 06:40 Basophilia % 0.1 % (0.0-1.5) 02/04/18 06:40 Eosinophil Count 0.5 % (0.0-6.8) 02/04/18 06:40 Sodium 138 mmol/L (136-145) 02/04/18 06:40 Potassium 4.1 mmol/L (3.5-5.1) 02/04/18 06:40 Chloride 103 mmol/L (98-107) 02/04/18 06:40 Carbon Dioxide 27 mmol/L (22-30) 02/04/18 06:40 BUN 17 mg/dL (7-17) 02/04/18 06:40 Creatinine 0.70 mg/dL (0.52-1.04) 02/04/18 06:40 Estimated Creat Clear 113 02/04/18 06:40 Est GFR ( Amer) > 60 (60-) 02/04/18 06:40 Est GFR (Non-Af Amer) > 60 (60-) 02/04/18 06:40 Glucose 106 mg/dL (74-106) 02/04/18 06:40 Calcium 7.8 mg/dL (8.4-10.2) L 02/04/18 06:40 Total Bilirubin 0.5 mg/dL (0.2-1.3) 02/04/18 06:40 AST 74 U/L (15-46) H 02/04/18 06:40 ALT 39 U/L (13-69) 02/04/18 06:40 Alkaline Phosphatase 152 U/L (38-126) H 02/04/18 06:40 Troponin T <0.010 ng/mL (<0.010) 02/01/18 15:50 Total Protein 7.4 g/dL (6.3-8.2) 02/04/18 06:40 Albumin 3.1 g/dL (3.5-5.0) L 02/04/18 06:40 Assessment/Plan - Assessment/Plan (1) COPD exacerbation Status: Acute Assessment: improved (2) CAD (coronary artery disease) Status: Chronic Qualifiers: Coronary Disease-Associated Artery/Lesion type: bypass graft [place] vs. transplanted heart: [place] heart Associated angina: with stable angina Qualified Code(s): I25.708 - Atherosclerosis of coronary artery bypass graft(s), unspecified, with other forms of angina pectoris (3) Rheumatoid arthritis Status: Chronic Qualifiers: Rheumatoid arthritis location: multiple sites Rheumatoid factor presence: without rheumatoid factor Qualified Code(s): M06.09 - Rheumatoid arthritis without rheumatoid factor, multiple sites Assessment: stable (4) Chronic depression Status: Chronic Assessment: stable
--- NOTE | 2018-02-05 08:47 | Discharge Summary ---
Discharge Summary - Discharge Sumary History of Present Illness: 77-year-old white female who presented to the clinic approximately 10 days prior to admission deplaning up some increasing shortness of breath and a productive cough up some yellow green phlegm. Patient was felt to have a bronchitis was started on Levaquin 500 mg PO Q day. Patient has been used to course of antibiotic several days ago stated initially she did have some improvement nothing seem to be getting worse again. Patient has happened to use her nebulizer on a more frequent basis along with her inhaler. Patient denies any fever or chills at this time. Patient felt that she may be having an exacerbation of her COPD. Patient was subsequently admitted to the hospital to acute care. Condition at Discharge: Stable Home Medications: Ambulatory Orders Medication Instructions Recorded Alprazolam [Xanax] 1 mg PO D PRN 01/15/16 Aspirin EC [Ecotrin] 81 mg PO DAILY 01/15/16 Atorvastatin Calcium 20 mg PO D 01/15/16 Levothyroxine Sodium [Synthroid] 50 mcg PO 07 01/15/16 Polyethylene Glycol 3350 [Miralax] 17 gm PO 1100 PRN 01/15/16 Potassium Chloride [Klor-Con M20] 20 meq PO DAILY 01/15/16 Venlafaxine HCl [Effexor Xr] 150 mg PO D 01/15/16 amLODIPine BESYLATE [Norvasc] 10 mg PO 0900 01/15/16 Amitriptyline HCl 50 mg PO HS 02/01/18 Ciclopirox 1 appl TP DAILY 02/01/18 Primidone [Mysoline] 50 mg PO BID 02/01/18 Acetaminophen [Tylenol] 650 mg PO Q4H PRN tablet 02/04/18 Amitriptyline HCl [Elavil] 150 mg PO HS #0 tablet 02/04/18 Atorvastatin Calcium [Lipitor] 40 mg PO HS #0 tablet 02/04/18 Ciclopirox [Ciclopirox] 1 appl TP DAILY 02/04/18 Codeine Phosphate/Guaifenesin 10 ml PO Q4H PRN liquid 02/04/18 [Robitussin AC] Donepezil HCl [Aricept] 10 mg PO BID tablet 02/04/18 Fluticasone Propionate [Flonase] 1 spray NS DAILY bottle 02/04/18 Levothyroxine Sodium [Synthroid] 50 mcg PO 0700 #0 tablet 02/04/18 Pantoprazole Sodium [Protonix] 40 mg PO 0700 tablet. 02/04/18 Venlafaxine HCl [Effexor Xr] 150 mg PO DAILY cap.er.24h 02/04/18 Zolpidem Tartrate [Ambien] 5 mg PO HS PRN tablet 02/04/18 Consultations this Visit: None Procedures this Visit: None Allergies/Adverse Reactions: Allergies Allergy/AdvReac Type Severity Reaction Status Date / Time atenolol Allergy Verified 02/01/18 16:01 cyclobenzaprine Allergy Verified 02/01/18 16:01 [Cyclobenzaprine] influenza virus vaccine, Allergy Verified 02/01/18 16:01 specific [influenza virus vacc,specific] lisinopril Allergy Verified 02/01/18 16:01 pregabalin [From Lyrica] Allergy Verified 02/01/18 16:01 Sulfa (Sulfonamide Allergy Verified 02/01/18 16:01 Antibiotics) Discharge Summary: Patient was placed on antibiotic therapy for bronchitis. Patient was started on IV steroids and subsequently tapers down. Her course of admission. Patient was started on nebulized treatments on a regular basis. Patient did have some improvement during the first 24 hours been plateaued for approximately 2436 hrs. and then have some further treatment. At the time to discharge was felt that the patient was stable enough that she could be discharged been treated at home. Patient was discharged in stable condition. Patient did have some insomnia problems. Patient also complained of some chronic depression. This remains stable. Patient denies any suicidal ideation to thoughts.Rheumatoid arthritis remain stable. Hypertension remain stable on home medications.
[2018-02-05] MEDS: ACETAMINOPHEN 325 MG TABLET PO PRN (09:12)
[2018-02-05] MEDS: PRIMIDONE 50 MG TABLET PO SCH (09:40)
[2018-02-05 11:23] VITALS: BP 174/83
== END 2018-02-05 13:20 | disposition home or self-care (01) | DRG 192 ==
LOC: ED 15:45 → SOUTH 17:11
PROVIDERS: ADMIT Family Medicine; ATTEND Family Medicine
DX: J44.1 Chronic obstructive pulmonary disease with (acute) exacerbation (principal); I25.708 Atherosclerosis of coronary artery bypass graft(s), unspecified, with other forms of angina pectoris; I10 Essential (primary) hypertension; E78.5 Hyperlipidemia, unspecified; E03.9 Hypothyroidism, unspecified; M06.09 Rheumatoid arthritis without rheumatoid factor, multiple sites; F41.8 Other specified anxiety disorders; I25.2 Old myocardial infarction; Z87.891 Personal history of nicotine dependence
CPT/HCPCS: 71046; 71275; 80053; 84484; 85025; 87040; 93005; 94640; 94760; A9270; J0696; J1030; J1650; J1940; 81002; 96365; 96366; 99222; 99232; 99238; J2920; Q9967; S1016